=== PATIENT | male | born 1965 | race Caucasian/White ===

== ENCOUNTER → 2020-06-19 06:38 | Outpatient (CLI) | payer MEDICAID, SELFPAY ==
--- NOTE | 2020-06-20 09:04 | PFT ---
INTRODUCTION: The patient is a 55-year-old male that presents for pulmonary function studies secondary to a diagnosis of dyspnea. Respiratory therapy reports good patient effort. Bronchodilators were used during testing. INTERPRETATION: Forced expiration spirometry demonstrates no evidence of a large airways obstructive ventilatory defect. There was no significant response to aerosolized bronchodilators, based upon strict ATS criteria. Spirograms are of good quality and plateau normally. Body plethysmography was performed and reveals a decreased TLC to 4.74 L, 73% of predicted, indicative of a mild restrictive ventilatory impairment. The remainder of the lung volumes are symmetrically reduced. Diffusing capacity by single breath CO is at the lower limits of normal. IMPRESSION: Isolated mild restrictive ventilatory impairment with diffusing capacity at the lower limits of normal.
== END ==
PROVIDERS: PCP Student in an Organized Health Care Education/Training Program; Referring Provider Student in an Organized Health Care Education/Training Program; Visit Provider Student in an Organized Health Care Education/Training Program
DX: R06.00 Dyspnea, unspecified (principal); Z87.891 Personal history of nicotine dependence
CPT/HCPCS: 94060; 94726; 94729

== ENCOUNTER → 2020-08-23 09:03 | Outpatient (CLI) | payer MEDICAID, SELFPAY ==
[2020-08-23 10:45] LABS: Albumin, Serum 3.6 g/dL (3.2-5.0); BUN 53 mg/dL (7-18); BUN/Creat Ratio 11.9 RATIO (10-20); Chloride 111 mmol/L (98-107); Creatinine, Serum 4.46 mg/dL (0.70-1.30); EST Glomerular Filtration Rate 15 mL/min (>60); Est Glom Filt Rate - Afr Amer 18 mL/min (>60); Glucose 109 mg/dL (74-106); Phosphorus 3.9 mg/dL (2.5-4.9); Potassium 4.9 mmol/L (3.5-5.1); Sodium Level 139 mmol/L (136-145)
== END ==
PROVIDERS: PCP Student in an Organized Health Care Education/Training Program; Referring Provider Student in an Organized Health Care Education/Training Program; Visit Provider Student in an Organized Health Care Education/Training Program
DX: I10 Essential (primary) hypertension (principal); R94.4 Abnormal results of kidney function studies
CPT/HCPCS: 36415; 80069

== ENCOUNTER → 2020-08-26 12:26 | Outpatient (CLI) | payer MEDICAID, SELFPAY ==
[2020-08-21 11:09] LABS: Hematocrit 36.6 % (40-54); Hemoglobin 11.4 g/dL (13.0-16.5); Mean Corp Hgb Conc 31.1 g/dL (32-36); Mean Corpuscular Hgb 29.5 pg (27.0-32.0); Mean Corpuscular Volume 94.6 fL (80-94); Mean Platelet Vol. 10.5 fl (6.2-12.0); Platelet Count 274 K/mm3 (150-450); RBC Distribution Width CV 12.6 % (11.6-14.6); RBC Distribution Width SD 43.3 fl (35.1-43.9); Red Blood Count 3.87 M/mm3 (4.6-6.2); White Blood Count 7.1 K/mm3 (4.4-11.0)
[2020-08-21 11:40] LABS: Hemoglobin A1c 6.6 % (3.8-5.6)
[2020-08-21 12:07] LABS: ALB/GLOB Ratio 0.9 RATIO (0.9-2.4); AST(SGOT) 17 U/L (15-37); Alanine Aminotransfer ALT/SGPT 18 U/L (16-61); Albumin, Serum 3.9 g/dL (3.2-5.0); Alkaline Phosphatase 52 U/L (45-117); Anion Gap 8 (5-15); BUN 48 mg/dL (7-18); BUN/Creat Ratio 10.5 RATIO (10-20); Chloride 107 mmol/L (98-107); Cholesterol 207 mg/dL (200); Creatinine, Serum 4.57 mg/dL (0.70-1.30); EST Glomerular Filtration Rate 14 mL/min (>60); Est Glom Filt Rate - Afr Amer 17 mL/min (>60); Globulin 4.5 g/dL (2.2-4.2); Glucose 143 mg/dL (74-106); High Density Lipoprotein 41 mg/dL; Potassium 5.1 mmol/L (3.5-5.1); Protein, Total 8.4 g/dL (6.4-8.2); Sodium Level 137 mmol/L (136-145); Thyroid Stim Hormone (TSH) 0.66 uIU/mL (0.358-3.74); Triglycerides 171 mg/dL; Very Low Density Lipoprotein 34 mg/dL (5-40)
--- NOTE | 2020-08-26 12:51 | MRI_ITS ---
STUDY: MRI THORACIC SPINE WITHOUT CONTRAST REASON FOR EXAM: Male, 55 years old. compression fx, back pain, bilateral extremity pain and numbness TECHNIQUE: Standardized fat and water weighted pulse sequences were obtained in the sagittal and axial planes. The uterus and ovaries are unremarkable.. An IUD is. COMPARISON: None. FINDINGS: Normal kyphosis of the thoracic spine. There is levoscoliosis of the thoracic spine. T1-2, T2-3, T3-4, T4-5, T5-6, T9-10, T10-11, T11-12: Normal endplates. Normal disc hydration, heights and morphology of the corresponding intervertebral discs. Normal central canal and intervertebral neural foramina at the corresponding levels. At T6-7, T7-8,Endplate spondylosis. Decreased disc height and small circumferential disc bulge. Degenerative changes of the bilateral facet joints. Mild narrowing of the central canal and bilateral intervertebral neural foramina. At T8-9, there is a small right para midline disc herniation impinging on the spinal cord near the origin of the right T9 nerve root. There is mild decreased height of vertebral bodies of T7 and T8 suggesting old compression fractures. There is no acute bone injury. Normal visualized thoracic cord. Normal conus medullaris that terminates at the . Multiple bilateral renal cysts are noted. MRI/Spine Thoracic (Routine) IMPRESSION: At T6-7, T7-8,Endplate spondylosis. Decreased disc height and small circumferential disc bulge. Degenerative changes of the bilateral facet joints. Mild narrowing of the central canal and bilateral intervertebral neural foramina. At T8-9, there is a small right para midline disc herniation impinging on the spinal cord near the origin of the right T9 nerve root. There is mild decreased height of vertebral bodies of T7 and T8 suggesting old compression fractures. There is no acute bone injury. Electronically Signed: Chau Patel, at 4:08 EDT Tel , Service support ,
--- NOTE | 2020-08-26 12:51 | MRI_ITS ---
STUDY: MRI LUMBAR SPINE WITHOUT CONTRAST REASON FOR EXAM: Male, 55 years old. compression fx, back pain, bilateral extremity pain and numbness TECHNIQUE: Standardized fat and water weighted pulse sequences were obtained in the sagittal and axial planes. COMPARISON: None FINDINGS: There is dextroscoliosis of lumbar spine angle measures 29 degrees. T12-L1: Normal endplates. Normal disc height, hydration and morphology. Normal bilateral facet joints. Normal central canal and bilateral lateral recesses. Normal bilateral intervertebral neural foramina. Normal lumbar lordosis. There is no substantial scoliosis. Normal conus medullaris that terminates at the L1 level. L1-2: Endplate spondylosis. Decreased disc height and small circumferential disc bulge. Degenerative changes of the bilateral facet joints. Mild narrowing of the central canal and cblg-hq-nujoondl narrowing of the bilateral intervertebral neural foramina more prominent on the left side. L2-3: Endplate spondylosis. Decreased disc height and small circumferential disc bulge. Degenerative changes of the bilateral facet joints. Mild narrowing of the central canal and gljw-wr-fzfpjnve narrowing of the bilateral intervertebral neural foramina more prominent on the left side. L3-4: Endplate spondylosis. Decreased disc height and small circumferential disc bulge. Degenerative changes of the bilateral facet joints. Mild narrowing of the central canal and zeed-sn-euyhfvzy narrowing of the bilateral intervertebral neural foramina. L4-5: Endplate spondylosis. Decreased disc height and small circumferential disc bulge. Degenerative changes of the bilateral facet joints. Mild narrowing of the central canal and nahs-zw-drkxsbcu narrowing of the bilateral intervertebral neural foramina more prominent on the right side. L5-S1: Endplate spondylosis. Decreased disc height and small circumferential disc bulge. Degenerative changes of the bilateral facet joints. Mild narrowing of the central canal and oehe-fa-sxugsuqm narrowing of the bilateral intervertebral neural foramina more prominent on the right side. Normal visualized sacral ala. There is severe bilateral hydronephrosis and hydroureter with pseudodiverticulosis in the urinary bladder wall suggesting neurogenic bladder. MRI/Spine Lumbar (Routine) IMPRESSION: Multilevel degenerative changes, as described above. Electronically Signed: Chau Patel, at 6:18 EDT Tel , Service support ,
== END ==
PROVIDERS: PCP Student in an Organized Health Care Education/Training Program; Referring Provider Student in an Organized Health Care Education/Training Program; Visit Provider Student in an Organized Health Care Education/Training Program
DX: M48.50XA Collapsed vertebra, not elsewhere classified, site unspecified, initial encounter for fracture (principal)
CPT/HCPCS: 36415; 72146; 72148; 80053; 80061; 83036; 84443; 85027

== ENCOUNTER 2020-08-27 18:49 | Inpatient (IN) | payer MEDICAID, SELFPAY ==
[2020-08-27 18:50] VITALS: BP 160/95; PULSE 115; RESP 16; TEMP 36.2; O2SAT 98; BMI 32.3
--- NOTE | 2020-08-27 19:03 | EKG12_ITS ---
Test Reason : ABN LABS Blood Pressure : / mmHG Vent. Rate : 108 BPM Atrial Rate : 108 BPM P-R Int : 154 ms QRS Dur : 100 ms QT Int : 334 ms P-R-T Axes : 056 103 071 degrees QTc Int : 447 ms Sinus tachycardia Rightward axis Borderline ECG Confirmed by SRAVANTHI MILLER, ELIZABETH ([id number]), news editor NACHO BGEUM ([id number]) on 09/02/2020 11:55:18 AM Referred By: NAHOMI Confirmed By:ELIZBAETH FISHMAN MD
[2020-08-27 19:16] LABS: Absolute Neutrophil Count 4.4 X10^3/uL (2.0-7.7); Basophil# 0.04 X10^3/uL; Basophil% 0.6 % (0-1); Eosinophil# 0.31 X10^3/uL; Eosinophils% 4.4 % (0-5); Hematocrit 36.2 % (40-54); Hemoglobin 11.9 g/dL (13.0-16.5); Lymphocyte % 23.9 % (19-41); Mean Corp Hgb Conc 32.9 g/dL (32-36); Mean Corpuscular Hgb 30.4 pg (27.0-32.0); Mean Corpuscular Volume 92.3 fL (80-94); Mean Platelet Vol. 10.2 fl (6.2-12.0); Monocyte# 0.64 X10^3/uL; NRBC Flagged by Analyzer 0 % (0-5); Neutrophil # 4.39 X10^3/uL (2.7-7.7); Neutrophil % 61.7 % (47-70); Platelet Count 310 K/mm3 (150-450); RBC Distribution Width CV 12.3 % (11.6-14.6); RBC Distribution Width SD 41.3 fl (35.1-43.9); Red Blood Count 3.92 M/mm3 (4.6-6.2); White Blood Count 7.1 K/mm3 (4.4-11.0)
[2020-08-27] MEDS: HYDROcodone Bitartrate/Apap 5/325 Tablet PO (19:18)
--- NOTE | 2020-08-27 19:20 | ED.DCSUM_ITS ---
- ER Visit Summary Date of Service: 08/27/20 Chief Complaint: Hyperkalemia History of Present Illness: The patient is a 55 M who presents with hyperkalemia that was noticed today. Patient had outpatient labs drawn at [facility]. Patient states his doctor called him and told him that his potassium was elevated. Patient also saw his primary care physician 4 days ago and had labs drawn at that time. His potassium was normal at that time. However, his kidney function tests have been elevated over the past 4 days. Patient's primary care physician started him on lisinopril which did not improve his renal function. Patient admits to some shortness of breath. Patient states this is worse with walking. Patient denies any fevers or chills. Patient's primary care physician called him prior to the patient coming to the emergency department. He reported that the patient's baseline creatinine is 1.4. Physical Examination: Vital signs are stable. Patient is afebrile. Patient is in no acute distress. Oral mucosa is pink and moist. Neck is supple. Trachea is midline. There is no JVD noted. Heart was regular rate and rhythm. Lungs are clear and equal bilaterally. Abdomen is soft. Bowel sounds are normal. There is no tenderness. There is no rebound or guarding noted. Skin is warm dry. Cranial nerves II through XII are intact. There are no focal motor or sensory deficits noted. Extremities are intact. There is no calf tenderness or edema. Test Results: EKG showed sinus tachycardia with a rate of 108. There are no acute ST or T wave changes noted. CBC shows a mild anemia with a hemoglobin of 11.9 and hematocrit of 36.2. Comprehensive metabolic profile shows an elevated potassium of 5.4. BUN and creatinine were also elevated at 57 and 4.65. Liver function tests were essentially within normal limits. Urinalysis does not show any evidence of urinary tract infection. Troponin was normal. Emergency Department Course and Treatment: Patient was given IV fluids here. Patient was given a dose of Kayexalate here. Case was discussed with the hospitalist. He will admit the patient to PCU. Patient understands and is agreeable with the plan. All questions were answered. Disposition: Admit to hospital Impression: 1. Acute kidney injury 2. Hyperkalemia This note was generated with [employer] software. It may contain incorrect words, spelling, and punctuation that were not noted in review of the chart prior to signing ED Disposition - Plan for ED Patient: Disposition: Acute Care Hospital [facility] Diagnosis: Acute kidney injury, Hyperkalemia
[2020-08-27 19:41] LABS: Bacteria 0 SEEN /hpf (None Seen); Mucous, Urine 0 SEEN /hpf (<or=2+); Red Blood Cells-Urine 0 SEEN /hpf (0-5); Squamous Epithelial Cells - UA 0 SEEN /hpf (0-5); White Blood Cells 0 SEEN /hpf (0-5)
[2020-08-27 19:42] LABS: Color, Urine Yellow (Yellow); Glucose, Dipstick Normal (Normal); Ketone-Dipstick Negative (Negative); Leukocyte Esterase-Dipstick Negative /ul (Negative); Nitrite-Dipstick Negative (Negative); Occult Blood-Urine Negative /ul (Negative); Protein-Dipstick 30 mg/dl (Negative); Urine Bilirubin Dipstick Negative (Negative); Urine Clarity Clear (Clear); Urine Urobilinogen Normal (Normal)
[2020-08-27 19:43] LABS: ALB/GLOB Ratio 0.9 RATIO (0.9-2.4); AST(SGOT) 12 U/L (15-37); Alanine Aminotransfer ALT/SGPT 18 U/L (16-61); Alkaline Phosphatase 61 U/L (45-117); Anion Gap 7 (5-15); BUN 57 mg/dL (7-18); BUN/Creat Ratio 12.3 RATIO (10-20); Calcium,Total 9.4 mg/dL (8.5-10.1); Chloride 108 mmol/L (98-107); Creatinine, Serum 4.65 mg/dL (0.70-1.30); EST Glomerular Filtration Rate 14 mL/min (>60); Est Glom Filt Rate - Afr Amer 17 mL/min (>60); Estimated Creatinine Clearance 17.16 ml/min; Globulin 4.7 g/dL (2.2-4.2); Glucose 138 mg/dL (74-106); Potassium 5.4 mmol/L (3.5-5.1); Protein, Total 8.7 g/dL (6.4-8.2); Sodium Level 137 mmol/L (136-145)
--- NOTE | 2020-08-27 20:48 | PCM.HP.STD ---
Problem List (1) Hyperkalemia Status: Acute (2) Acute renal failure Status: Acute (3) Benign prostatic hyperplasia Status: Chronic (4) Type 2 diabetes mellitus Status: Chronic History of Present Illness Date of Admission: 08/27/20 Chief Complaint: Abnormal labs. The patient is a 55 year old M with past medical history as mentioned above who was instructed by his PCP to go to the emergency department because his potassium was elevated. States that he has been having kidney problems over the last couple of weeks and his doctor has been doing blood work to monitor his kidney function. He had a blood work done as outpatient and his doctor called him today and he was informed to come to the emergency department for evaluation. He complains of generalized fatigue that has been going on for several weeks, he thinks that his body is not metabolizing his medication appropriately and he complains of nausea without vomiting as well. He mentioned that he has been having frequency of urination over the last several days without dysuria or hematuria. He denied chest pain or shortness of breath. He denied abdominal pain, flank pain, nausea or vomiting. He denied urinary retention. He reported mild dry chronic cough secondary to asthma. Denied fever or chills. He had a history of type 2 diabetes mellitus which has been under control with diet and exercise according to the patient. History of benign prostatic hypertrophy and he has been on Flomax. He mentioned that 4 years ago, he had pneumonia which was complicated by sepsis, was on mechanical ventilation and complicated by renal failure that required hemodialysis and remained on hemodialysis for 2 weeks. He came off hemodialysis at that time and he has no issues since then. Patient reports that his baseline creatinine has been around 1.4 according to him, no documents. In the emergency department, he was afebrile, slightly tachycardic, blood pressure was slight elevated, pulse ox was 98% on room air. Routine blood work was remarkable for hemoglobin of 11.9 g/dL, potassium 5.4, BUN 57, creatinine is 4.65, GFR is 14. LFT was unremarkable. EKG revealed sinus tachycardia, no acute segment changes. Troponin was negative. Urinalysis showed no evidence of infection. He is being admitted for acute renal failure and hyperkalemia for evaluation and treatment. Past Medical History Past Medical History (Chronic Problems): Chronic Problems Benign prostatic hyperplasia (Chronic) Type 2 diabetes mellitus (Chronic) Allergies aspirin Allergy (Verified 08/27/20 18:52) NEEDS FOLLOW-UP Home Medications: Ambulatory Orders Medication Instructions Recorded Acetaminophen/Diphenhydramine 1 - 2 tab PO QHS 08/27/20 [Tylenol Pm Ex-Strength Caplet] Lisinopril [Zestril] 10 mg PO DAILY 08/27/20 Tamsulosin HCl 0.4 mg PO DAILY 08/27/20 Surgical History: herniorrhaphy Psychiatric History: No pertinent psych hx Lives: Alone Smoking Status: Current every day smoker Tobacco Use: Pipe Alcohol: Occasional Drugs: None - *Family History Maternal History Items: No pertinent history Paternal History Items: No pertinent history Review of Systems Constitutional: Reports: Fatigue. Denies: Anorexia, Chills, Fever, Weakness Eyes: Denies: Blurred vision, Double vision, Drainage, Redness HEENT: Denies: Difficulty Hearing, Dysphasia, Ear Pain, Eye Pain, Nasal Congestion, Sore Throat Cardiovascular: Denies: Chest Pain, Chest Pressure, Heaviness, Light Headedness, Palpitations, Syncope Respiratory: Reports: Cough. Denies: Pleuritic Pain, Shortness of Breath, Sputum production, Wheezing Gastrointestinal: Reports: Nausea. Denies: Abdominal Pain, Constipation, Diarrhea, Hematochezia, Melena, Vomiting Genitourinary: Reports: Frequency. Denies: Dysuria, Hematuria Musculoskeletal: Reports: Back Pain. Denies: Arm Pain, Foot Pain Skin: Denies: Dryness, Rash Neurological: Denies: Balance problems, Double vision, Change in Speech, Slurred speech, Confusion, Focal weakness, Headaches Psychiatric: Denies: Anxiety, Depression Endocrine: Denies: Change in Body Habitus, Polydipsia, Polyuria VTE Information - Inpt Only VTE Present on Admission: No VTE Mechan Device Prophylaxis: None VTE Pharm Prophylaxis ordered?: Yes Patient Problems: Active and Suspected Problems Hyperkalemia (Acute) Acute renal failure (Acute) - Physical Exam Vitals/I&O's: Vital Signs Temp Pulse Resp BP Pulse Ox 97.1 F L 115 H 16 160/95 H 98 08/27/20 18:50 08/27/20 18:50 08/27/20 18:50 08/27/20 18:50 08/27/20 18:50 Oxygen Delivery Method Room Air Weight: 213 lb Body Mass Index (BMI) 32.3 Intake and Output for Last 24 Hours 08/25/20 08/26/20 08/27/20 23:59 23:59 23:59 Intake Total 500 / 500 Balance 500 / 500 General: Alert, Oriented x3, Cooperative, No apparent distress HEENT: Atraumatic, PERRLA, EOMI, Normocephalic Oral: Moist Mucosa, No Gingival or Mucosal Lesions/ Ulcerations Neck: Supple, No JVD, Negative Carotid Bruits, Trachea Midline, Thyroid Normal Size and Texture Lungs: Clear to auscultation, Normal air movement, No rhonchi, No wheeze, No rales, Diminished Cardiovascular: Regular rate, Regular Rhythm, Normal S1, Normal S2, PMI Normal, Tachycardic Abdomen: Bowel Sounds Present, Soft, Non Tender, Non-Distended, No Hepato-splenomegaly Extremities: No clubbing, No cyanosis, No edema Skin: No rashes, No breakdown Lymphatic: No Cervical, Supraclavicular, or Inguinal Adenopathy Neurological: Cranial nerves II-XII grossly intact, Motor Exam 5/5 strength throughout Psych/Mental Status: Normal Affect, Appropriate, Alert and oriented to time, place, person, mood and affect Laboratory Results 08/27/20 19:08: WBC 7.1, RBC 3.92 L, Hgb 11.9 L, Hct 36.2 L, MCV 92.3, MCH 30.4, MCHC 32.9, RDW Std Deviation 41.3, RDW Coeff of Janina 12.3, Plt Count 310, MPV 10.2, Immature Gran % (Auto) 0.400, Neut % (Auto) 61.7, Lymph % (Auto) 23.9, Perkins % (Auto) 9.0, Eos % (Auto) 4.4, Baso % (Auto) 0.6, Absolute Neuts (auto) 4.4, Absolute Lymphs (auto) 1.70, Nucleated RBC % 0 08/27/20 19:08: Sodium 137, Potassium 5.4 H, Chloride 108 H, Carbon Dioxide 22.0, Anion Gap 7, BUN 57 H, Creatinine 4.65 H, Estim Creat Clear Calc 17.16, Est GFR (MDRD) Af Amer 17 L, Est GFR (MDRD) Non-Af 14 L, BUN/Creatinine Ratio 12.3, Glucose 138 H, Calcium 9.4, Total Bilirubin 0.30, AST 12 L, ALT 18, Alkaline Phosphatase 61, Troponin I < 0.015, Total Protein 8.7 H, Albumin 4.0, Globulin 4.7 H, Albumin/Globulin Ratio 0.9 08/27/20 19:29: Urine Color Yellow, Urine Clarity Clear, Urine pH 6.0, Ur Specific [place] 1.010, Urine Protein 30 H, Urine Glucose (UA) Normal, Urine Ketones Negative, Urine Occult Blood Negative, Urine Nitrite Negative, Urine Bilirubin Negative, Urine Urobilinogen Normal, Ur Leukocyte Esterase Negative, Urine RBC 0 SEEN, Urine WBC 0 SEEN, Ur Squamous Epith Cells 0 SEEN, Urine Bacteria 0 SEEN, Urine Mucus 0 SEEN Assessment/Plan All Active Problems Hyperkalemia (Acute) Acute renal failure (Acute) This is a 55 years old male patient was referred to the emergency department by his PCP for abnormal blood work including elevated potassium and is being admitted for acute renal failure and hyperkalemia. #1 acute renal failure: Patient had a history of pneumonia complicated by renal failure and sepsis 4 years ago, was on dialysis for 2 weeks and then came off dialysis. Reportedly, baseline creatinine has been around 1.4 mg/dL according to the patient, no documents available. EKG revealed sinus tachycardia, otherwise normal. Plan: Admit to PCU, cardiac monitoring, IV fluids, input output chart, avoid nephrotoxic drugs, check urine sodium, urine chloride, urine creatinine, urine calcium, ultrasound kidneys and bladder, nephrology consult, repeat CBC and BMP tomorrow morning. #2 hyperkalemia: Secondary to #1 in addition to lisinopril. EKG reviewed, no acute changes, does show sinus tachycardia. Patient received 1 dose of Kayexalate in the ED. Plan: IV fluids as above, input output chart, discontinue lisinopril, repeat BMP tomorrow morning. #3 type 2 diabetes mellitus: On diet control according to the patient. Plan: Accu-Cheks, insulin sliding scale, check hemoglobin A1c. #4 benign prostatic hypertrophy: Patient denies any obstructive symptoms, continue Flomax. #5 chronic back pain: Patient had MRI lumbar and thoracic spine that was done yesterday, reviewed. Plan for OxyIR as needed for pain, follow-up with his doctor as outpatient. #6 DVT prophylaxis: Subcu heparin. This note was generated with [employer]ation software. It may contain incorrect words, spelling, and punctuation that were not noted in checking the note before signing. Inpatient E&M: 38396 Init Hosp L2
[2020-08-27] MEDS: Sodium Polystyrene Sulfonate 15 GM/60 ML UDC 30 GM PO (20:52)
[2020-08-27 20:54] VITALS: BP 160/95; PULSE 90; RESP 15; RESP 16; TEMP 36; O2SAT 98
--- NOTE | 2020-08-27 21:03 | US_ITS ---
STUDY: RENAL ULTRASOUND - COMPLETE REASON FOR EXAM: Male, 55 years old. RUTHIE ON CKD TECHNIQUE: Ultrasound evaluation of the kidneys was performed with real-time and static pompa-scale imaging. COMPARISON: None. FINDINGS: RIGHT KIDNEY: Normal location of the right kidney, which is normal in size. The right kidney measures 11.4 cm. There is a normal cortex of the right kidney. The renal cortex measures 0.7 cm. There is no right renal mass or cyst. There are no right renal calculi. There is severe hydronephrosis of the right kidney. DISTAL RIGHT URETER: There is non-visualization of the distal right ureter. There is no demonstrated right ureterovesical junction calculus. There is a visualized right ureteral jet. LEFT KIDNEY: Normal location of the left kidney, which is normal in size. The left kidney measures 12.5 cm. There is a normal cortex of the left kidney. The renal cortex measures 1.9 cm. There is no left renal mass or cyst. There are no left renal calculi. There is severe hydronephrosis of the left kidney. DISTAL LEFT URETER: There is non-visualization of the distal left ureter. There is no demonstrated left ureterovesical junction calculus. There is a visualized left ureteral jet. BLADDER: The distended urinary bladder has a volume of 634 ml. The empty urinary bladder has a volume of ml. There is a normal wall thickness of the distended urinary bladder. There is no demonstrated mass within the urinary bladder. There are no demonstrated bladder calculi. US/Kidney and Bladder IMPRESSION: Severe bilateral hydronephrosis likely from bladder outlet obstruction. Correlation with CT would be useful. Electronically Signed: Billy Rodriguez MD at 8:07 EDT Tel , Service support ,
[2020-08-27 21:11] VITALS: BMI 32.1
[2020-08-27 21:15] VITALS: BP 131/86; PULSE 94; RESP 18; TEMP 36.1; O2SAT 98
--- NOTE | 2020-08-27 21:30 | RAD_ITS ---
STUDY: X-RAY CHEST REASON FOR EXAM: Male, 55 years old. ACUTE RENAL FAILURE TECHNIQUE: Single AP portable view of the chest. COMPARISON: None. FINDINGS: The lungs are clear and expanded. There is no demonstrated pleural abnormality. Normal size heart. Normal mediastinum and yifan. Normal visualized pulmonary arteries. Normal visualized aortic arch and descending thoracic aorta. Normal visualized thoracic spine. Normal visualized ribs, clavicles, and shoulders. There is no demonstrated abnormality of the visualized soft tissue structures of the upper abdomen. RAD/Chest 1 View (Portable) IMPRESSION: Normal x-ray examination of the chest. Electronically Signed: Billy Rodriguez MD at 8:27 EDT Tel , Service support ,
[2020-08-27 21:33] VITALS: PULSE 79; PULSE 99
[2020-08-27 21:35] VITALS: BMI 32.1
[2020-08-27] MEDS: oxyCODONE 5 MG Tablet PO (21:43)
[2020-08-27] MEDS: 0.9% Saline Lock 10 ML Syringe IV (21:43)
[2020-08-27] MEDS: 0.9% Normal Saline 1,000 ML 125 ML IV (21:43)
[2020-08-27] MEDS: Acetaminophen 325 MG Tablet 650 MG PO (21:43)
[2020-08-27] MEDS: Heparin Injection (Vial) 5,000 UNIT/ML VIAL 5000 UNIT SC (21:51)
[2020-08-27 22:06] LABS: Urine Chloride 39 mmol/L (Not Establ.); Urine Sodium 41 mmol/L (Not Establ.)
[2020-08-27 22:35] LABS: Calcium, Urine (Random) < 2.0 mg/dL (Not Estab.)
[2020-08-27 22:51] LABS: Hemoglobin A1c 6.5 % (3.8-5.6)
[2020-08-27 23:01] LABS: Bedside Glucose 161 mg/dL (70-110)
[2020-08-28] VITALS (12 sets, daily range): BP systolic 120–135; BP diastolic 62–74; PULSE 68–100; RESP 16–18; TEMP 36.8–37.1; O2SAT 98–100
[2020-08-28] MEDS: Acetaminophen 325 MG Tablet 650 MG PO ×4 (03:43→23:20)
[2020-08-28] MEDS: oxyCODONE 5 MG Tablet PO ×4 (03:43→23:20)
[2020-08-28] MEDS: 0.9% Normal Saline 1,000 ML 125 ML IV (05:40)
[2020-08-28] MEDS: Heparin Injection (Vial) 5,000 UNIT/ML VIAL 5000 UNIT SC ×2 (05:41→20:33)
[2020-08-28 06:27] LABS: Absolute Lymphocyte Count 1.94 X10^3/uL (0.83-4.51); Absolute Neutrophil Count 2.8 X10^3/uL (2.0-7.7); Basophil# 0.02 X10^3/uL; Basophil% 0.3 % (0-1); Eosinophil# 0.37 X10^3/uL; Eosinophils% 6.4 % (0-5); Hematocrit 33.2 % (40-54); Hemoglobin 10.6 g/dL (13.0-16.5); Lymphocyte # 1.94 X10^3/ul (4.0); Lymphocyte % 33.6 % (19-41); Mean Corp Hgb Conc 31.9 g/dL (32-36); Mean Corpuscular Hgb 30.1 pg (27.0-32.0); Mean Corpuscular Volume 94.3 fL (80-94); Mean Platelet Vol. 10.2 fl (6.2-12.0); Monocyte# 0.61 X10^3/uL; Monocyte% 10.6 % (0-10); NRBC Flagged by Analyzer 0 % (0-5); Neutrophil # 2.81 X10^3/uL (2.7-7.7); Neutrophil % 48.6 % (47-70); Platelet Count 255 K/mm3 (150-450); RBC Distribution Width CV 12.4 % (11.6-14.6); RBC Distribution Width SD 43.1 fl (35.1-43.9); Red Blood Count 3.52 M/mm3 (4.6-6.2); White Blood Count 5.8 K/mm3 (4.4-11.0)
[2020-08-28 06:56] LABS: Bedside Glucose 137 mg/dL (70-110)
[2020-08-28 06:56] LABS: Anion Gap 8 (5-15); BUN 56 mg/dL (7-18); BUN/Creat Ratio 13.3 RATIO (10-20); Calcium,Total 8.3 mg/dL (8.5-10.1); Chloride 108 mmol/L (98-107); Creatinine, Serum 4.21 mg/dL (0.70-1.30); EST Glomerular Filtration Rate 16 mL/min (>60); Est Glom Filt Rate - Afr Amer 19 mL/min (>60); Estimated Creatinine Clearance 18.95 ml/min; Glucose 109 mg/dL (74-106); Potassium 5.1 mmol/L (3.5-5.1); Sodium Level 136 mmol/L (136-145)
--- NOTE | 2020-08-28 09:15 | PCM.PN.HOSP ---
Patient Problems: Active and Suspected Problems Hyperkalemia (Acute) Acute renal failure (Acute) Reason for Visit: Follow-up for acute kidney injury on CKD with bladder outlet obstruction and bilateral hydronephrosis. Objective: Seen and examined. Heart rate and blood pressure are controlled. Patient states he has been urinating every 2 hours during the day and night for 2 to 3 years. Patient has history of his schizophrenia. Patient had history of kidney failure that required hemodialysis for 2 weeks about 4 years ago when he had sepsis from pneumonia which required ventilator support. Patient reports at baseline creatinine around 1.4. Patient stated mild burning micturition but it is not concerning to him. UA negative, 0 WBC, 0 RBC, 0 bacteria. Physical exam General: Alert, Oriented x3, Cooperative HEENT: Atraumatic, PERRLA, EOMI, Normocephalic Oral: No Gingival or Mucosal Lesions/ Ulcerations Neck: Supple, No JVD, Negative Carotid Bruits Lungs: Air entry diminished in bilateral lung bases. No crepitation/rhonchi Cardiovascular: Regular rate, Regular Rhythm, Normal S1, Normal S2, No murmurs Abdomen: Bowel Sounds Present, Soft, Non Tender, Non-Distended : No renal angle tenderness. No suprapubic tenderness. On per rectal exam, prostate is enlarged, could not reach upper border. No nodule palpated. Extremities: No edema, Capillary Refill Less than 3 Seconds Skin: No rashes, No breakdown Musculoskeletal: No Tenderness to Palpation of Joints or Extremities Neurological: Cranial nerves II-XII grossly intact, Deep Tendon Reflexes 2+/4 and Symmetrical, Neuro grossly intact Psych/Mental Status: Normal Affect, Appropriate. Vitals/I&O's: Vital Signs Temp Pulse Resp BP Pulse Ox 98.3 F 76 18 135/62 H 98 08/28/20 03:15 08/28/20 03:15 08/28/20 03:15 08/28/20 03:15 08/28/20 07:30 Oxygen Delivery Method Room Air Weight: 210 lb 15.718 oz Body Mass Index (BMI) 32.1 Intake and Output for Last 24 Hours 08/26/20 08/27/20 08/28/20 23:59 23:59 23:59 Intake Total 500 / 500 993.75 / 993.75 Balance 500 / 500 993.75 / 993.75 Laboratory Results 08/27/20 19:08: WBC 7.1, RBC 3.92 L, Hgb 11.9 L, Hct 36.2 L, MCV 92.3, MCH 30.4, MCHC 32.9, RDW Std Deviation 41.3, RDW Coeff of Janina 12.3, Plt Count 310, MPV 10.2, Immature Gran % (Auto) 0.400, Neut % (Auto) 61.7, Lymph % (Auto) 23.9, [place] % (Auto) 9.0, Eos % (Auto) 4.4, Baso % (Auto) 0.6, Absolute Neuts (auto) 4.4, Absolute Lymphs (auto) 1.70, Nucleated RBC % 0 08/27/20 19:08: Sodium 137, Potassium 5.4 H, Chloride 108 H, Carbon Dioxide 22.0, Anion Gap 7, BUN 57 H, Creatinine 4.65 H, Estim Creat Clear Calc 17.16, Est GFR (MDRD) Af Amer 17 L, Est GFR (MDRD) Non-Af 14 L, BUN/Creatinine Ratio 12.3, Glucose 138 H, Calcium 9.4, Total Bilirubin 0.30, AST 12 L, ALT 18, Alkaline Phosphatase 61, Troponin I < 0.015, Total Protein 8.7 H, Albumin 4.0, Globulin 4.7 H, Albumin/Globulin Ratio 0.9 08/27/20 19:08: Hemoglobin A1c 6.5 H 08/27/20 19:29: Urine Color Yellow, Urine Clarity Clear, Urine pH 6.0, Ur Specific [place] 1.010, Urine Protein 30 H, Urine Glucose (UA) Normal, Urine Ketones Negative, Urine Occult Blood Negative, Urine Nitrite Negative, Urine Bilirubin Negative, Urine Urobilinogen Normal, Ur Leukocyte Esterase Negative, Urine RBC 0 SEEN, Urine WBC 0 SEEN, Ur Squamous Epith Cells 0 SEEN, Urine Bacteria 0 SEEN, Urine Mucus 0 SEEN 08/27/20 19:29: Ur Random Sodium 41, Ur Random Calcium < 2.0, Urine Creatinine 39.70, Urine Chloride 39 08/27/20 21:48: POC Glucose 161 H 08/28/20 06:05: WBC 5.8, RBC 3.52 L, Hgb 10.6 L, Hct 33.2 L, MCV 94.3 H, MCH 30.1, MCHC 31.9 L, RDW Std Deviation 43.1, RDW Coeff of Janina 12.4, Plt Count 255, MPV 10.2, Immature Gran % (Auto) 0.500, Neut % (Auto) 48.6, Lymph % (Auto) 33.6, [place] % (Auto) 10.6 H, Eos % (Auto) 6.4 H, Baso % (Auto) 0.3, Absolute Neuts (auto) 2.8, Absolute Lymphs (auto) 1.94, Nucleated RBC % 0 08/28/20 06:05: Sodium 136, Potassium 5.1, Chloride 108 H, Carbon Dioxide 20.0 L, Anion Gap 8, BUN 56 H, Creatinine 4.21 H, Estim Creat Clear Calc 18.95, Est GFR (MDRD) Af Amer 19 L, Est GFR (MDRD) Non-Af 16 L, BUN/Creatinine Ratio 13.3, Glucose 109 H, Calcium 8.3 L 08/28/20 06:36: POC Glucose 137 H Current Medications Acetaminophen (Acetaminophen 325 Mg Tablet) 650 mg PO Q6H PRN PRN PRN Reason: Pain Score 1-10/Temp > 100.7 F Last Admin: 08/28/20 03:43 Dose: 650 mg Documented by: Amlodipine Besylate (Amlodipine 5 Mg Tablet) 5 mg PO DAILY [facility] Heparin Sodium (Porcine) (Heparin Injection (Vial) 5,000 Unit/Ml Vial) 5,000 unit SC Q8 [facility] Last Admin: 08/28/20 05:41 Dose: 5,000 unit Documented by: Hydralazine HCl (Hydralazine 20 Mg/Ml Vial) 10 mg IV Q8H PRN PRN PRN Reason: for SBP>160 Sodium Chloride () 1,000 mls @ 125 mls/hr IV .Q8H [facility] Last Admin: 08/28/20 05:40 Dose: 125 mls/hr Documented by: Sodium Chloride () 250 mls @ 15 mls/hr IV .[id number] PRN PRN Reason: Saline Flush Sodium Chloride () 250 mls @ 15 mls/hr IV .[id number] PRN PRN Reason: Additional IVPB Infusion Influenza Virus Vaccine Quadrival (Influenza Vaccine (6mos+)/Pf 0.5 Ml Syringe) 0.5 ml IM .ONCE ONE Stop: 08/28/20 10:01 Insulin Human Lispro (Insulin Lispro 100 Unit/Ml Insuln.Pen) 0 unit SC [facility]; Protocol Last Admin: 08/28/20 06:37 Dose: Not Given Documented by: Ondansetron HCl (Ondansetron 4 Mg/2 Ml Vial) 4 mg IV Q8H PRN PRN PRN Reason: NAUSEA/VOMITING Oxycodone HCl (Oxycodone 5 Mg Tablet) 5 mg PO Q6H PRN PRN PRN Reason: Pain Score 6-10 Last Admin: 08/28/20 03:43 Dose: 5 mg Documented by: Senna/Docusate Sodium (Senna/Docusate Sodium 1 Tablet) 2 tablet PO BID PRN PRN PRN Reason: Constipation Sodium Chloride (0.9% Saline Lock 10 Ml Syringe) 10 - 40 ml IV UD PRN PRN Reason: SALINE FLUSH Last Admin: 08/27/20 21:43 Dose: 20 ml Documented by: Tamsulosin HCl (Tamsulosin Hcl 0.4 Mg Capsule) 0.4 mg PO DAILY [facility] Zolpidem Tartrate (Zolpidem Tartrate 5 Mg Tablet) 5 mg PO QHS PRN PRN PRN Reason: INSOMNIA STROKE Vital Signs/Narrative: Vital Signs Pulse Ox 08/28/20 07:30 98 Medical Necessity - Tobacco Use Smoking Status: Current every day smoker Tobacco Use: Pipe Assessment/Plan All Active Problems Hyperkalemia (Acute) Acute renal failure (Acute) This is a 55 years old male patient was referred to the emergency department by his PCP for abnormal blood work including elevated potassium and is being admitted for acute renal failure and hyperkalemia. #1 Acute kidney injury, most likely postobstructive from BPH with bladder outlet obstruction and bilateral hydronephrosis on baseline CKD stage III as per patient his baseline creatinine 1.4 but no official documentation. Patient had a history of severe sepsis with pneumonia complicated by renal failure and sepsis 4 years ago, was on dialysis for 2 weeks and then came off dialysis. EKG revealed sinus tachycardia, otherwise normal. Repeat BUN/creatinine similar 56/4.21. Urine sodium 41, urine chloride 39. At home patient is not on diuretic. Thorne catheter ordered for urine drainage. Kidney and bladder ultrasound shows severe bilateral hydronephrosis from bladder outlet obstruction. Distended urinary bladder of 634 mL. Normal wall thickness of distended bladder. No bladder mass or stone. Supervisor [employer] and neurologist consult. Avoid nephrotoxic medication or diuretic. Continue Flomax. #2 hyperkalemia: Secondary to #1 in addition to lisinopril and RUTHIE on CKD stage III. EKG reviewed, no acute changes, does show sinus tachycardia. Repeat K is 5.1 at upper limit of normal. #3 type 2 diabetes mellitus: On diet control according to the patient. Plan: Accu-Cheks, insulin sliding scale, check hemoglobin A1c. #4 benign prostatic hypertrophy: Patient denies any obstructive symptoms, continue Flomax. #5 chronic back pain: Patient had MRI lumbar and thoracic spine that was done yesterday, reviewed. Plan for OxyIR as needed for pain, follow-up with his doctor as outpatient. #6 DVT prophylaxis: Subcu heparin. Clinical Impression(s) from Imaging Studies Renal Ultrasound 08/27/20 21:03 IMPRESSION: Severe bilateral hydronephrosis likely from bladder outlet obstruction. Correlation with CT would be useful. Chest X-Ray 08/27/20 21:30 IMPRESSION: Normal x-ray examination of the chest. Electronically Signed: Billy Rodriguez MD at 8:27 EDT Tel , Service support , Inpatient E&M: [id number] [facility] Hosp L2
[2020-08-28] MEDS: Tamsulosin HCl 0.4 MG Capsule PO (10:00)
[2020-08-28] MEDS: amLODIPine 5 MG Tablet PO (10:00)
--- NOTE | 2020-08-28 11:33 | CASEMGMT ---
JODEE GRAY assessment: Face to Face with patient for initial transition planning/care coordination assessment. JODEE GRAY introduced self and role at [facility], pt voices understanding and consents to assessment at this time. Pt is lying in bed in no distress at this time Pt is A/Ox4 at this time and answers all questions appropriately at this time. Care providers, pharmacy, and demographics verified/updated at this time. Presentation: Pt states sent in by PCP for elev potassium, states has made some diet changes Admitting dx: Hyperkalemia, RUTHIE on CKD PCP: Joao Specialists: Pt states no current specialists. Preferred Pharmacy: [facility] Insurance: [employer] Prescription Benefit: [employer] Living Will/HPOA: Pt states does not have a LW/HPOA and declines AD info at this time. LNOK: Antoni Meyer, medical contact at counseling center per pt Living Arrangements: Pt states lives with his emotional support dog, Jeffrey [place], in 1 story apt and states no concerns at home at this time. Pt states is independent with ADL's. Transportation: Pt states uses bus/taxi/counseling center assist and states no transportation concerns at this time. DME/HHC: Pt states has a cane and states no need for any further DME at this time. Pt states no hx of HHC or SNF in the past. Pt states that if he goes home with the butler catheter, he would like a HHC SN set up to 'check up' on him and states no preference for HHC at this time. Pt also has a CM thru the counseling center, Neha Philippe. Mendoza corbett, voices understanding. Pt states no concerns with going home at time of discharge. Pt states is disabled. Pt states smokes a pipe 'all day' and drinks about a 6 pack of beer each month. Pt states no further concerns/needs at this time. CM to follow for any further discharge planning/needs. Advised pt to ask for CM if any further questions/concerns/needs arise, voices understanding. Pt Goal: Home Plan[place] JODEE G[place]
[2020-08-28 11:35] LABS: Bedside Glucose 107 mg/dL (70-110)
[2020-08-28] MEDS: 0.9% Normal Saline 1,000 ML 75 ML IV (13:22)
--- NOTE | 2020-08-28 14:36 | PCM.CONS.U ---
Problem List (1) Benign prostatic hyperplasia Status: Chronic Qualifiers: Lower urinary tract symptom detail: urinary retention Reason for Consult Date of Consultation: 08/28/20 Reason for Consultation: BPH with retention History of Present Illness: The patient is a 55 year old male who presents to the hospital with retention of urine had a Thorne catheter placed with significant drainage of urine creatinine still elevated he does have acute renal failure. On ultrasound he could see a large median lobe causing obstruction of the prostate. At the very distended bladder. Thorne catheter is in place and urine is draining Past Medical History Past Medical History (Chronic Problems): Chronic Problems Benign prostatic hyperplasia (Chronic) Type 2 diabetes mellitus (Chronic) Allergies aspirin Allergy (Verified 08/27/20 21:16) rapid heart rate/arrhythmia Home Medications: Ambulatory Orders Medication Instructions Recorded Acetaminophen/Diphenhydramine 1 - 2 tab PO QHS 08/27/20 [Tylenol Pm Ex-Strength Caplet] Lisinopril [Zestril] 10 mg PO DAILY 08/27/20 Tamsulosin HCl 0.4 mg PO DAILY 08/27/20 Surgical History: herniorrhaphy Psychiatric History: No pertinent psych hx Lives: Alone Smoking Status: Current every day smoker Tobacco Use: Pipe Alcohol: Occasional Drugs: None - *Family History Maternal History Items: No pertinent history Paternal History Items: No pertinent history Review of Systems Constitutional: Denies: Chills, Fever, Weight Change HEENT: Denies: Head Aches, Sinus Congestion, Sinus Drainage Cardiovascular: Denies: Chest Pain, Palpitations Respiratory: Denies: Cough, Shortness of breath at rest, Sputum production Gastrointestinal: Denies: Abdominal Pain, Nausea, Vomiting Genitourinary: Denies: Dysuria Musculoskeletal: Denies: Joint Pain, Joint Tenderness Skin: Denies: Rash, Wounds Neurological: Denies: Numbness, Tingling, Focal weakness Psychiatric: Denies: Anxiety, Depression, Homicidal Ideations, Suicidal Ideations Hematologic/ Lymphatic: Denies: Easy Bruising, Easy Bleeding Physical Exam - Physical Exam Vital Signs Temp 98.3 F 08/28/20 09:50 Pulse 77 08/28/20 09:50 Resp 18 08/28/20 09:50 BP 134/74 H 08/28/20 09:50 Pulse Ox 99 08/28/20 10:15 Intake & Output 10/08/27/20 08/28/20 23:59 23:59 23:59 Intake Total 500 / 500 2426.25 / 2426.25 Output Total 1949 Balance 500 / 500 476.25 / 476.25 Weight: 95.7 kg 95.7 kg Intake: Oral 470 / 470 Intake, IV Amount 500 / 500 / 0.9% Normal Saline 1,000 ML @ / 75 mls/hr IV .[id number] [facility] Rx#: [id number] 0.9% Normal Saline 500 ML @ 500 / 500 1000 mls/hr IV .Q30M [facility] Rx#: [id number] Output: Urine 1949 Other: Number of Voids 4 6 Number of Bowel Movements 7 General: Alert, Oriented x3 HEENT: PERRLA Oral: Moist Mucosa Neck: Supple Lungs: Normal air movement Cardiovascular: Regular rate Laboratory Tests Past 24 Hrs 08/27/20 08/27/20 08/27/20 19:08 19:08 19:08 WBC 7.1 RBC 3.92 L Hgb 11.9 L Hct 36.2 L MCV 92.3 MCH 30.4 MCHC 32.9 RDW Std Deviation 41.3 RDW Coeff of Janina 12.3 Plt Count 310 MPV 10.2 Immature Gran % (Auto) 0.400 Neut % (Auto) 61.7 Lymph % (Auto) 23.9 [place] % (Auto) 9.0 Eos % (Auto) 4.4 Baso % (Auto) 0.6 Absolute Neuts (auto) 4.4 Absolute Lymphs (auto) 1.70 Nucleated RBC % 0 Sodium 137 Potassium 5.4 H Chloride 108 H Carbon Dioxide 22.0 Anion Gap 7 BUN 57 H Creatinine 4.65 H Estim Creat Clear Calc 17.16 Est GFR (MDRD) Af Amer 17 L Est GFR (MDRD) Non-Af 14 L BUN/Creatinine Ratio 12.3 Glucose 138 H Hemoglobin A1c 6.5 H Calcium 9.4 Total Bilirubin 0.30 AST 12 L ALT 18 Alkaline Phosphatase 61 Troponin I < 0.015 Total Protein 8.7 H Albumin 4.0 Globulin 4.7 H Albumin/Globulin Ratio 0.9 Urine Color Urine Clarity Urine pH Ur Specific [place] Urine Protein Urine Glucose (UA) Urine Ketones Urine Occult Blood Urine Nitrite Urine Bilirubin Urine Urobilinogen Ur Leukocyte Esterase Urine RBC Urine WBC Ur Squamous Epith Cells Urine Bacteria Urine Mucus Ur Random Sodium Ur Random Calcium Urine Creatinine Urine Chloride 08/27/20 08/27/20 08/28/20 19:29 19:29 06:05 WBC 5.8 RBC 3.52 L Hgb 10.6 L Hct 33.2 L MCV 94.3 H MCH 30.1 MCHC 31.9 L RDW Std Deviation 43.1 RDW Coeff of Janina 12.4 Plt Count 255 MPV 10.2 Immature Gran % (Auto) 0.500 Neut % (Auto) 48.6 Lymph % (Auto) 33.6 [place] % (Auto) 10.6 H Eos % (Auto) 6.4 H Baso % (Auto) 0.3 Absolute Neuts (auto) 2.8 Absolute Lymphs (auto) 1.94 Nucleated RBC % 0 Sodium Potassium Chloride Carbon Dioxide Anion Gap BUN Creatinine Estim Creat Clear Calc Est GFR (MDRD) Af Amer Est GFR (MDRD) Non-Af BUN/Creatinine Ratio Glucose Hemoglobin A1c Calcium Total Bilirubin AST ALT Alkaline Phosphatase Troponin I Total Protein Albumin Globulin Albumin/Globulin Ratio Urine Color Yellow Urine Clarity Clear Urine pH 6.0 Ur Specific [place] 1.010 Urine Protein 30 H Urine Glucose (UA) Normal Urine Ketones Negative Urine Occult Blood Negative Urine Nitrite Negative Urine Bilirubin Negative Urine Urobilinogen Normal Ur Leukocyte Esterase Negative Urine RBC 0 SEEN Urine WBC 0 SEEN Ur Squamous Epith Cells 0 SEEN Urine Bacteria 0 SEEN Urine Mucus 0 SEEN Ur Random Sodium 41 Ur Random Calcium < 2.0 Urine Creatinine 39.70 Urine Chloride 39 08/28/20 06:05 WBC RBC Hgb Hct MCV MCH MCHC RDW Std Deviation RDW Coeff of Janina Plt Count MPV Immature Gran % (Auto) Neut % (Auto) Lymph % (Auto) [place] % (Auto) Eos % (Auto) Baso % (Auto) Absolute Neuts (auto) Absolute Lymphs (auto) Nucleated RBC % Sodium 136 Potassium 5.1 Chloride 108 H Carbon Dioxide 20.0 L Anion Gap 8 BUN 56 H Creatinine 4.21 H Estim Creat Clear Calc 18.95 Est GFR (MDRD) Af Amer 19 L Est GFR (MDRD) Non-Af 16 L BUN/Creatinine Ratio 13.3 Glucose 109 H Hemoglobin A1c Calcium 8.3 L Total Bilirubin AST ALT Alkaline Phosphatase Troponin I Total Protein Albumin Globulin Albumin/Globulin Ratio Urine Color Urine Clarity Urine pH Ur Specific [place] Urine Protein Urine Glucose (UA) Urine Ketones Urine Occult Blood Urine Nitrite Urine Bilirubin Urine Urobilinogen Ur Leukocyte Esterase Urine RBC Urine WBC Ur Squamous Epith Cells Urine Bacteria Urine Mucus Ur Random Sodium Ur Random Calcium Urine Creatinine Urine Chloride Assessment/Plan All Active Problems Hyperkalemia (Acute) Acute renal failure (Acute) 55-year-old male with retention of urine bilateral hydronephrosis acute renal failure his creatinine is still can a high not sure how much more skin to get better. Certainly I could offer him a TURP for the obstruction of his prostate but he may not still void spontaneously given his very stretched out bladder and possible bladder decompensation. I have my office get him set up for TURP what they get insurance to approve the surgery.
--- NOTE | 2020-08-28 14:39 | CON.PCM_ITS ---
Consultation - Renal 08/28/20 PCP/ Referring MD: Requesting physician: [] Primary care physician: Dr. Manuel Shepherd DO Reason for Consultation:: renal failure - History of Present Illness History of Present Illness: The patient is a 55 year old M admitted for renal failure, hyperkalemia. He was instructed by his PCP to go to the emergency department. He has a history of prostate enlargement with symptoms of incontinence, wetting the bed, hesitancy, urgency, dribbling, and frequency. Creatine was mid 4's on admit with potassium 5.4. He has not been feeling well with weakness, poor appetite, abdominal bloating, nausea, vomiting. Denied tremors, fever, chills. He has a history of RUTHIE requiring temporary hemodialysis 4 years ago during hospitalization for sepsis, pneumonia in [facility]. He has not followed up with a kidney dr since because he states his kidney function was back to normal.He has a history of type 2 diabetes mellitus which has been under control with diet and exercise according to the patient. History of benign prostatic hypertrophy and he has been on Flomax. Renal US on admit showed bilateral hydronephrosis, butler catheter draining pinkish coloured urine. consulted. - Allergies Allergies: Allergies aspirin Allergy (Verified 08/27/20 21:16) rapid heart rate/arrhythmia - Current Medications Current Medications: Current Medications Acetaminophen (Acetaminophen 325 Mg Tablet) 650 mg PO Q6H PRN PRN PRN Reason: Pain Score 1-10/Temp > 100.7 F Last Admin: 08/28/20 10:01 Dose: 650 mg Documented by: Amlodipine Besylate (Amlodipine 5 Mg Tablet) 5 mg PO DAILY [facility] Last Admin: 08/28/20 10:00 Dose: 5 mg Documented by: Heparin Sodium (Porcine) (Heparin Injection (Vial) 5,000 Unit/Ml Vial) 5,000 unit SC Q12 [facility] Hydralazine HCl (Hydralazine 20 Mg/Ml Vial) 10 mg IV Q8H PRN PRN PRN Reason: for SBP>160 Sodium Chloride () 1,000 mls @ 75 mls/hr IV .[id number] [facility] Last Admin: 08/28/20 13:22 Dose: 75 mls/hr Documented by: Sodium Chloride () 250 mls @ 15 mls/hr IV .[id number] PRN PRN Reason: Saline Flush Sodium Chloride () 250 mls @ 15 mls/hr IV .[id number] PRN PRN Reason: Additional IVPB Infusion Insulin Human Lispro (Insulin Lispro 100 Unit/Ml Insuln.Pen) 0 unit SC ACHS [facility]; Protocol Last Admin: 08/28/20 12:03 Dose: Not Given Documented by: Ondansetron HCl (Ondansetron 4 Mg/2 Ml Vial) 4 mg IV Q8H PRN PRN PRN Reason: NAUSEA/VOMITING Oxycodone HCl (Oxycodone 5 Mg Tablet) 5 mg PO Q6H PRN PRN PRN Reason: Pain Score 6-10 Last Admin: 08/28/20 10:01 Dose: 5 mg Documented by: Senna/Docusate Sodium (Senna/Docusate Sodium 1 Tablet) 2 tablet PO BID PRN PRN PRN Reason: Constipation Sodium Chloride (0.9% Saline Lock 10 Ml Syringe) 10 - 40 ml IV UD PRN PRN Reason: SALINE FLUSH Last Admin: 08/27/20 21:43 Dose: 20 ml Documented by: Tamsulosin HCl (Tamsulosin Hcl 0.4 Mg Capsule) 0.4 mg PO DAILY [facility] Last Admin: 08/28/20 10:00 Dose: 0.4 mg Documented by: Zolpidem Tartrate (Zolpidem Tartrate 5 Mg Tablet) 5 mg PO QHS PRN PRN PRN Reason: INSOMNIA - Past Medical History Past Medical History (Chronic Problems): Chronic Problems Benign prostatic hyperplasia (Chronic) Type 2 diabetes mellitus (Chronic) - Past Surgical History Surgical History: herniorrhaphy - Social History Smoking Status: Current every day smoker Alcohol: Occasional Drugs: None - Family History Maternal History Items: Renal Disease Paternal History Items: - - prostates issues Review of Systems Constitutional: Reports: Anorexia, Weakness. Denies: Chills, Fever Eyes: Denies: Blurred vision HEENT: Denies: Head Aches Cardiovascular: Denies: Chest Pain, Edema, Syncope Respiratory: Denies: Cough, Shortness of Breath, Shortness of breath upon exertion Gastrointestinal: Reports: Abdominal Pain - bloating, Nausea, Vomiting. Denies: Diarrhea, Hematochezia Genitourinary: Reports: Frequency, Hesitancy, Incontinence, Nocturia, Retention, Urgency. Denies: Hematuria Musculoskeletal: Denies: Joint swelling Skin: Denies: Rash Neurological: Denies: Tremor Psychiatric: Reports: Anxiety. Denies: Depression Hematologic/ Lymphatic: Reports: Anemia Patient Problems: Active and Suspected Problems Hyperkalemia (Acute) Acute renal failure (Acute) - Physical Exam Vitals/I&O's: Vital Signs Temp Pulse Resp BP Pulse Ox 98.3 F 77 18 134/74 H 99 08/28/20 09:50 08/28/20 09:50 08/28/20 09:50 08/28/20 09:50 08/28/20 10:15 Oxygen Delivery Method Room Air Weight: 95.7 kg Body Mass Index (BMI) 32.1 Intake and Output for Last 24 Hours 08/26/20 08/27/20 08/28/20 23:59 23:59 23:59 Intake Total 500 / 500 2426.25 / 2426.25 Output Total 1950 / 1950 Balance 500 / 500 476.25 / 476.25 General: Alert, Oriented x3, Cooperative HEENT: PERRLA, EOMI Lungs: Clear to auscultation Cardiovascular: Regular rate, No rub noted Abdomen: Bowel Sounds Present, Soft, Non Tender, Non-Distended, Obese Extremities: No edema Skin: No rashes Musculoskeletal: No Muscle Wasting Neurological: Cranial nerves II-XII grossly intact Psych/Mental Status: Normal Affect, Appropriate, Alert and oriented to time, place, person, mood and affect Laboratory Results 08/27/20 19:08: WBC 7.1, RBC 3.92 L, Hgb 11.9 L, Hct 36.2 L, MCV 92.3, MCH 30.4, MCHC 32.9, RDW Std Deviation 41.3, RDW Coeff of Janina 12.3, Plt Count 310, MPV 10.2, Immature Gran % (Auto) 0.400, Neut % (Auto) 61.7, Lymph % (Auto) 23.9, [place] % (Auto) 9.0, Eos % (Auto) 4.4, Baso % (Auto) 0.6, Absolute Neuts (auto) 4.4, Absolute Lymphs (auto) 1.70, Nucleated RBC % 0 08/27/20 19:08: Sodium 137, Potassium 5.4 H, Chloride 108 H, Carbon Dioxide 22.0, Anion Gap 7, BUN 57 H, Creatinine 4.65 H, Estim Creat Clear Calc 17.16, Est GFR (MDRD) Af Amer 17 L, Est GFR (MDRD) Non-Af 14 L, BUN/Creatinine Ratio 12.3, Glucose 138 H, Calcium 9.4, Total Bilirubin 0.30, AST 12 L, ALT 18, Alkaline Phosphatase 61, Troponin I < 0.015, Total Protein 8.7 H, Albumin 4.0, Globulin 4.7 H, Albumin/Globulin Ratio 0.9 08/27/20 19:08: Hemoglobin A1c 6.5 H 08/27/20 19:29: Urine Color Yellow, Urine Clarity Clear, Urine pH 6.0, Ur Specific [place] 1.010, Urine Protein 30 H, Urine Glucose (UA) Normal, Urine Ketones Negative, Urine Occult Blood Negative, Urine Nitrite Negative, Urine Bilirubin Negative, Urine Urobilinogen Normal, Ur Leukocyte Esterase Negative, Urine RBC 0 SEEN, Urine WBC 0 SEEN, Ur Squamous Epith Cells 0 SEEN, Urine Bacteria 0 SEEN, Urine Mucus 0 SEEN 08/27/20 19:29: Ur Random Sodium 41, Ur Random Calcium < 2.0, Urine Creatinine 39.70, Urine Chloride 39 08/27/20 21:48: POC Glucose 161 H 08/28/20 06:05: WBC 5.8, RBC 3.52 L, Hgb 10.6 L, Hct 33.2 L, MCV 94.3 H, MCH 30.1, MCHC 31.9 L, RDW Std Deviation 43.1, RDW Coeff of Janina 12.4, Plt Count 255, MPV 10.2, Immature Gran % (Auto) 0.500, Neut % (Auto) 48.6, Lymph % (Auto) 33.6, [place] % (Auto) 10.6 H, Eos % (Auto) 6.4 H, Baso % (Auto) 0.3, Absolute Neuts (auto) 2.8, Absolute Lymphs (auto) 1.94, Nucleated RBC % 0 08/28/20 06:05: Sodium 136, Potassium 5.1, Chloride 108 H, Carbon Dioxide 20.0 L , Anion Gap 8, BUN 56 H, Creatinine 4.21 H, Estim Creat Clear Calc 18.95, Est GFR (MDRD) Af Amer 19 L, Est GFR (MDRD) Non-Af 16 L, BUN/Creatinine Ratio 13.3, Glucose 109 H, Calcium 8.3 L 08/28/20 06:36: POC Glucose 137 H 08/28/20 11:28: POC Glucose 107 Clinical Impression(s) from Imaging Studies Renal Ultrasound 08/27/20 21:03 IMPRESSION: Severe bilateral hydronephrosis likely from bladder outlet obstruction. Correlation with CT would be useful. Electronically Signed: Billy Rodriguez MD at 8:07 EDT Tel , Service support , Chest X-Ray 08/27/20 21:30 IMPRESSION: Normal x-ray examination of the chest. Electronically Signed: Billy Rodriguez MD at 8:27 EDT Tel , Service support , Current Medications Acetaminophen (Acetaminophen 325 Mg Tablet) 650 mg PO Q6H PRN PRN PRN Reason: Pain Score 1-10/Temp > 100.7 F Last Admin: 08/28/20 10:01 Dose: 650 mg Documented by: Amlodipine Besylate (Amlodipine 5 Mg Tablet) 5 mg PO DAILY [facility] Last Admin: 08/28/20 10:00 Dose: 5 mg Documented by: Heparin Sodium (Porcine) (Heparin Injection (Vial) 5,000 Unit/Ml Vial) 5,000 unit SC Q12 [facility] Hydralazine HCl (Hydralazine 20 Mg/Ml Vial) 10 mg IV Q8H PRN PRN PRN Reason: for SBP>160 Sodium Chloride () 1,000 mls @ 75 mls/hr IV .[id number] [facility] Last Admin: 08/28/20 13:22 Dose: 75 mls/hr Documented by: Sodium Chloride () 250 mls @ 15 mls/hr IV .[id number] PRN PRN Reason: Saline Flush Sodium Chloride () 250 mls @ 15 mls/hr IV .[id number] PRN PRN Reason: Additional IVPB Infusion Insulin Human Lispro (Insulin Lispro 100 Unit/Ml Insuln.Pen) 0 unit SC ACHS [facility]; Protocol Last Admin: 08/28/20 12:03 Dose: Not Given Documented by: Ondansetron HCl (Ondansetron 4 Mg/2 Ml Vial) 4 mg IV Q8H PRN PRN PRN Reason: NAUSEA/VOMITING Oxycodone HCl (Oxycodone 5 Mg Tablet) 5 mg PO Q6H PRN PRN PRN Reason: Pain Score 6-10 Last Admin: 08/28/20 10:01 Dose: 5 mg Documented by: Senna/Docusate Sodium (Senna/Docusate Sodium 1 Tablet) 2 tablet PO BID PRN PRN PRN Reason: Constipation Sodium Chloride (0.9% Saline Lock 10 Ml Syringe) 10 - 40 ml IV UD PRN PRN Reason: SALINE FLUSH Last Admin: 08/27/20 21:43 Dose: 20 ml Documented by: Tamsulosin HCl (Tamsulosin Hcl 0.4 Mg Capsule) 0.4 mg PO DAILY [facility] Last Admin: 08/28/20 10:00 Dose: 0.4 mg Documented by: Zolpidem Tartrate (Zolpidem Tartrate 5 Mg Tablet) 5 mg PO QHS PRN PRN PRN Reason: INSOMNIA Assessment/Plan All Active Problems Hyperkalemia (Acute) Acute renal failure (Acute) 1. Renal failure acute vs chronic. History of ATN requiring temporary hemodialysis 4 years ago with recovery. Baseline creatinine unknown. Creatinine on admit 4.5 to 4.2 today with butler to CD. Now with obstructive uropathy. Continue to monitor renal function with indwelling butler on discharge. Check 24h urine. No indication to start dialysis urgently. 2. BPH/Obstructive uropathy, urinary retention. Butler to CD. consult 3. Hyperkalemia due to renal failure, obstruction. Follow low K diet 4. HTN stable 5. DM2 diet controlled 6. Anemia check ironstudies
[2020-08-28] MEDS: Insulin Lispro 100 UNIT/ML INSULN.PEN SC ×2 (16:57→20:34)
[2020-08-28 17:11] LABS: Bedside Glucose 162 mg/dL (70-110)
[2020-08-28 20:46] LABS: Bedside Glucose 176 mg/dL (70-110)
[2020-08-29] VITALS (8 sets, daily range): BP systolic 129–166; BP diastolic 60–94; PULSE 69–105; RESP 16–17; TEMP 36.9–37.1; O2SAT 97–100
[2020-08-29] MEDS: 0.9% Normal Saline 1,000 ML 75 ML IV (02:32)
[2020-08-29] MEDS: Acetaminophen 325 MG Tablet 650 MG PO ×3 (05:24→17:32)
[2020-08-29] MEDS: oxyCODONE 5 MG Tablet PO ×3 (05:25→17:32)
[2020-08-29 06:31] LABS: Albumin, Serum 3.4 g/dL (3.2-5.0); BUN 51 mg/dL (7-18); BUN/Creat Ratio 12.4 RATIO (10-20); Calcium,Total 8.3 mg/dL (8.5-10.1); Chloride 110 mmol/L (98-107); Creatinine, Serum 4.11 mg/dL (0.70-1.30); EST Glomerular Filtration Rate 16 mL/min (>60); Est Glom Filt Rate - Afr Amer 19 mL/min (>60); Estimated Creatinine Clearance 19.42 ml/min; Ferritin 246 ng/mL (26-388); Glucose 119 mg/dL (74-106); Iron 58 ug/dL (65-175); Phosphorus 4.4 mg/dL (2.5-4.9); Potassium 4.9 mmol/L (3.5-5.1); Sodium Level 138 mmol/L (136-145)
[2020-08-29] MEDS: Insulin Lispro 100 UNIT/ML INSULN.PEN SC ×2 (06:32→11:15)
[2020-08-29 06:45] LABS: Bedside Glucose 156 mg/dL (70-110)
[2020-08-29 08:06] LABS: PTHIN 195.6 pg/mL (18.4-80.1)
[2020-08-29] MEDS: amLODIPine 5 MG Tablet PO (08:34)
[2020-08-29] MEDS: Tamsulosin HCl 0.4 MG Capsule PO (08:34)
[2020-08-29] MEDS: Heparin Injection (Vial) 5,000 UNIT/ML VIAL 5000 UNIT SC (08:34)
--- NOTE | 2020-08-29 08:39 | PCM.PN.REN ---
Patient Problems: Active and Suspected Problems Hyperkalemia (Acute) Acute renal failure (Acute) Subjective: no nausea, vomiting. Urine volume good. Creatinine remains elevated at 4.1. 24h urine in progress. Pt asking to go home today - Physical Exam Vitals/I&O's: Vital Signs Temp Pulse Resp BP Pulse Ox 98.6 F 79 16 142/60 H 99 08/29/20 08:30 08/29/20 08:30 08/29/20 08:30 08/29/20 08:30 08/29/20 08:30 Oxygen Delivery Method Room Air Weight: 95.7 kg Body Mass Index (BMI) 32.1 Intake and Output for Last 24 Hours 08/27/20 08/28/20 08/29/20 23:59 23:59 23:59 Intake Total 500 / 500 3456.25 / 3456.25 1627.5 / 1627.5 Output Total 5800 / 5800 1300 / 1300 Balance 500 / 500 -2343.75 / -2343.75 327.5 / 327.5 General: Alert, Oriented x3, Cooperative, No apparent distress Lungs: Clear to auscultation Cardiovascular: Regular rate, No rub noted Extremities: No edema Psych/Mental Status: Alert and oriented to time, place, person, mood and affect Laboratory Results 08/28/20 11:28: POC Glucose 107 08/28/20 16:49: POC Glucose 162 H 08/28/20 20:29: POC Glucose 176 H 08/29/20 05:20: Sodium 138, Potassium 4.9, Chloride 110 H, Carbon Dioxide 21.0, BUN 51 H, Creatinine 4.11 H, Estim Creat Clear Calc 19.42, Est GFR (MDRD) Af Amer 19 L, Est GFR (MDRD) Non-Af 16 L, BUN/Creatinine Ratio 12.4, Glucose 119 H, Calcium 8.3 L, Phosphorus 4.4, Iron 58 L, Ferritin 246, Albumin 3.4 08/29/20 05:20: PTH Intact 195.6 H 08/29/20 06:31: POC Glucose 156 H Current Medications Acetaminophen (Acetaminophen 325 Mg Tablet) 650 mg PO Q6H PRN PRN PRN Reason: Pain Score 1-10/Temp > 100.7 F Last Admin: 08/29/20 05:24 Dose: 650 mg Documented by: Amlodipine Besylate (Amlodipine 5 Mg Tablet) 5 mg PO DAILY [facility] Last Admin: 08/29/20 08:34 Dose: 5 mg Documented by: Ferrous Sulfate (Ferrous Sulfate 325 Mg Tablet) 325 mg PO 1200,1700 [facility] Heparin Sodium (Porcine) (Heparin Injection (Vial) 5,000 Unit/Ml Vial) 5,000 unit SC Q12 [facility] Last Admin: 08/29/20 08:34 Dose: 5,000 unit Documented by: Hydralazine HCl (Hydralazine 20 Mg/Ml Vial) 10 mg IV Q8H PRN PRN PRN Reason: for SBP>160 Sodium Chloride () 1,000 mls @ 75 mls/hr IV .[id number] [facility] Last Admin: 08/29/20 02:32 Dose: 75 mls/hr Documented by: Sodium Chloride () 250 mls @ 15 mls/hr IV .[id number] PRN PRN Reason: Saline Flush Sodium Chloride () 250 mls @ 15 mls/hr IV .[id number] PRN PRN Reason: Additional IVPB Infusion Insulin Human Lispro (Insulin Lispro 100 Unit/Ml Insuln.Pen) 0 unit SC ACHS [facility]; Protocol Last Admin: 08/29/20 06:32 Dose: 1 unit Documented by: Ondansetron HCl (Ondansetron 4 Mg/2 Ml Vial) 4 mg IV Q8H PRN PRN PRN Reason: NAUSEA/VOMITING Oxycodone HCl (Oxycodone 5 Mg Tablet) 5 mg PO Q6H PRN PRN PRN Reason: Pain Score 6-10 Last Admin: 08/29/20 05:25 Dose: 5 mg Documented by: Senna/Docusate Sodium (Senna/Docusate Sodium 1 Tablet) 2 tablet PO BID PRN PRN PRN Reason: Constipation Sodium Chloride (0.9% Saline Lock 10 Ml Syringe) 10 - 40 ml IV UD PRN PRN Reason: SALINE FLUSH Last Admin: 08/27/20 21:43 Dose: 20 ml Documented by: Tamsulosin HCl (Tamsulosin Hcl 0.4 Mg Capsule) 0.4 mg PO DAILY [facility] Last Admin: 08/29/20 08:34 Dose: 0.4 mg Documented by: Zolpidem Tartrate (Zolpidem Tartrate 5 Mg Tablet) 5 mg PO QHS PRN PRN PRN Reason: INSOMNIA Medical Necessity - Tobacco Use Smoking Status: Current every day smoker Tobacco Use: Pipe Assessment/Plan All Active Problems Obstructive uropathy (Acute) Hyperkalemia (Acute) Acute renal failure (Acute) 1. Acute Renal failure vs chronic kidney disease stage 4. History of ATN requiring temporary hemodialysis 4 years ago with recovery. Baseline creatinine unknown. Creatinine on admit 4.5 to 4.2 today with butler to CD. ATN from obstructive uropathy. Continue to monitor renal function with indwelling butler on discharge. 24h urine in progress. No indication to start dialysis urgently. Obtain vein mapping. Will refer for dialysis education as outpt. Expressed importance of f/u in office 2. BPH/Obstructive uropathy, urinary retention. Mati to CD. consult 3. Hyperkalemia due to renal failure, obstruction resolved. Follow low K diet 4. HTN stable 5. DM2 diet controlled 6. Iron def Anemia continue oral iron on discharge
--- NOTE | 2020-08-29 08:59 | VDUE_ITS ---
Reason For Study: AVF, RUTHEI ON CKD Right Arm Left Arm Right Cephalic Vein at the wrist measures Ceph at wrist not visualized due to IV. Ceph 0.38 x 0.38 cm. at AC IV noted. Right Cephalic Vein in the forearm measures Left Cephalic Vein in the forearm measures 0.36 x 0.38 cm. 0.33 x 0.31 cm. Right Cephalic Vein below antecub measures Left Cephalic Vein below antecub measures 0.29 x 0.31 cm. 0.32 x 0.36 cm. Branch cephalic below AC, 0.17 x 0.16. Left Cephalic Vein above antecub measures Right Cephalic Vein above antecub measures 0.50 x 0.57 cm. 0.55 x 0.66 cm. Left Cephalic Vein at mid bicep measures 0.34 Right Cephalic Vein mid bicep measures 0.58 x 0.31 cm. x 0.54 cm. Left Cephalic Vein at the shoulder measures Right Cephalic Vein at the shoulder measures 0.31 x 0.30 cm. 0.54 x 0.51 cm. Basilic vein at origin measures 0.74 x 0.83 Right Basilic Vein at the origin measures cm. 0.30 x 0.37 cm. Basilic vein at bicep measures 0.68 x 0.66 Right Basilic Vein mid bicep measures 0.26 x cm. 0.25 cm. Basilic vein above antecub measures 0.76 x Right Basilic Vein above antecub measures 0.64 cm. 0.25 x 0.25 cm. Left Brachial artery measures 0.49 x 0.42 cm, Right Brachial Artery measures 0.47 x 0.45 with a velocity of 115.6 cm/s cm with a velocity of 148.4 cm/s. Left Radial artery measures 0.31 x 0.32 cm/, Right Radial Artery measures 0.33 x 0.33 cm with a velocity of 100.1 cm/s. with a velocity of 109.4 cm/s. Interpretation Summary Patent and compressible bilateral upper extremity cephalic and basilic veins. Special comment noted that the wrist on the left could not be visualized secondary to the placement of an IV and that the cephalic vein at the antecubital space on the left had an IV in place. This would be detrimental to future fistula placement Normal diameter and flow bilateral brachial and radial arteries Ordering Physician: Ale Lehman Performed By: Alisia Lama RVT and Student ?
--- NOTE | 2020-08-29 09:03 | DS.PCM_ITS ---
Discharge Date and Diagnosis - Problem List Patient Problems: Active and Suspected Problems Hyperkalemia (Acute) Acute renal failure (Acute) Date of Admission: 08/27/20 Date of Discharge: 08/29/20 - Primary Discharge Diagnosis Acute Problems: Active Problems RUTHIE on baseline CKD stage III secondary to BPH causing bilateral hydronephrosis and bladder outlet obstruction - Secondary Discharge Diagnosis Chronic Problems: Chronic Problems CKD (chronic kidney disease) stage 4, GFR 15-29 ml/min (Chronic) Benign prostatic hyperplasia (Chronic) Type 2 diabetes mellitus (Chronic) Hospital Course and Treatment Summary of Care Provided: [] This is a 55 years old male patient was referred to the emergency department by his PCP for abnormal blood work including elevated potassium and is being admitted for acute renal failure and hyperkalemia. #1 Acute kidney injury, most likely postobstructive from BPH with bladder o utlet obstruction and bilateral hydronephrosis on baseline CKD stage III as per patient his baseline creatinine 1.4 but no official documentation. Patient had a history of severe sepsis with pneumonia complicated by renal failure and sepsis 4 years ago, was on dialysis for 2 weeks and then came off dialysis. EKG revealed sinus tachycardia, otherwise normal. Repeat BUN/creatinine 51/4.11 no major difference. Urine sodium 41, urine chloride 39. At home patient is not on diuretic. Patient had 9 L urine output after Thorne catheter was probably patient is in diuretic phase of RUTHIE. Kidney and bladder ultrasound shows severe bilateral hydronephrosis from bladder outlet obstruction. Distended urinary bladder of 634 mL. Normal wall thickness of distended bladder. No bladder mass or stone. Seen by editor department and urologist. Discussed with the editor department and patient currently on 24-hour urine collection for measurement of creatinine clearance and protein measurement. Left arm vein mapping was done. Seen by urologist in follow-up in office with Thorne catheter. Patient might need TURP after bladder wall decompensation subsides. Continue Flomax. #2 hyperkalemia: Secondary to #1 in addition to lisinopril and RUTHIE on CKD stage III. EKG reviewed, no acute changes, does show sinus tachycardia. Repeat K is 4.9. Lisinopril discontinued. Avoid nephrotoxic or potassium supplement. #3 type 2 diabetes mellitus: On diet control according to the patient. Accu- Cheks, insulin sliding scale, A1c 6.5 suggestive of good glucose control #4 benign prostatic hypertrophy: continue Flomax. #5 chronic back pain: Patient had MRI lumbar and thoracic spine that was done yesterday, reviewed. Plan for OxyIR as needed for pain, follow-up with his doctor as outpatient. #6 DVT prophylaxis: Subcu heparin. Discharge medication reconciliation done. Discharge follow-up instructions completed. Discharge process discussed with the patient and all questions were answered to patient's satisfaction. Patient to follow-up with urology and editor department. Discharged with Thorne catheter. Total time spent, exact 35 minutes on discharge meds reconciliation, examination, coordination of care with nurses and ancillary staff, review of imaging and blood test and discussion with the patient on follow-up instructions Clinical Impression(s) from Imaging Studies Renal Ultrasound 08/27/20 21:03 IMPRESSION: Severe bilateral hydronephrosis likely from bladder outlet obstruction. Correlation with CT would be useful. Chest X-Ray 08/27/20 21:30 IMPRESSION: Normal x-ray examination of the chest. Patient Problems: Active and Suspected Problems Hyperkalemia (Acute) Acute renal failure (Acute) Objective: Seen and examined. Patient had Thorne catheter. Total urine output 9000 mL after Thorne catheter. Urine is clear. Discussed with the editor department and urologist. Physical exam General: Alert, Oriented x3, Cooperative HEENT: Atraumatic, PERRLA, EOMI, Normocephalic Oral: No Gingival or Mucosal Lesions/ Ulcerations Neck: Supple, No JVD, Negative Carotid Bruits Lungs: Air entry diminished in bilateral lung bases. No crepitation/rhonchi Cardiovascular: Regular rate, Regular Rhythm, Normal S1, Normal S2, No murmurs Abdomen: Bowel Sounds Present, Soft, Non Tender, Non-Distended : No renal angle tenderness. No suprapubic tenderness. On rectal exam, prostate is enlarged, could not reach upper border. No nodule palpated. Extremities: No edema, Capillary Refill Less than 3 Seconds Skin: No rashes, No breakdown Musculoskeletal: No Tenderness to Palpation of Joints or Extremities Neurological: Cranial nerves II-XII grossly intact, Deep Tendon Reflexes 2+/4 and Symmetrical, Neuro grossly intact Psych/Mental Status: Normal Affect, Appropriate. - Physical Exam Vitals/I&O's: Vital Signs Temp Pulse Resp BP Pulse Ox 98.6 F 79 16 142/60 H 99 08/29/20 08:30 08/29/20 08:30 08/29/20 08:30 08/29/20 08:30 08/29/20 08:30 Oxygen Delivery Method Room Air Weight: 210 lb 15.718 oz Body Mass Index (BMI) 32.1 Intake and Output for Last 24 Hours 08/27/20 08/28/20 08/29/20 23:59 23:59 23:59 Intake Total 500 / 500 3456.25 / 3456.25 1627.5 / 1627.5 Output Total 5800 / 5800 1300 / 1300 Balance 500 / 500 -2343.75 / -2343.75 327.5 / 327.5 Laboratory Results 08/28/20 11:28: POC Glucose 107 08/28/20 16:49: POC Glucose 162 H 08/28/20 20:29: POC Glucose 176 H 08/29/20 05:20: Sodium 138, Potassium 4.9, Chloride 110 H, Carbon Dioxide 21.0, BUN 51 H, Creatinine 4.11 H, Estim Creat Clear Calc 19.42, Est GFR (MDRD) Af Amer 19 L, Est GFR (MDRD) Non-Af 16 L, BUN/Creatinine Ratio 12.4, Glucose 119 H, Calcium 8.3 L, Phosphorus 4.4, Iron 58 L, Ferritin 246, Albumin 3.4 08/29/20 05:20: PTH Intact 195.6 H 08/29/20 06:31: POC Glucose 156 H Current Medications Acetaminophen (Acetaminophen 325 Mg Tablet) 650 mg PO Q6H PRN PRN PRN Reason: Pain Score 1-10/Temp > 100.7 F Last Admin: 08/29/20 05:24 Dose: 650 mg Documented by: Amlodipine Besylate (Amlodipine 5 Mg Tablet) 5 mg PO DAILY [facility] Last Admin: 08/29/20 08:34 Dose: 5 mg Documented by: Ferrous Sulfate (Ferrous Sulfate 325 Mg Tablet) 325 mg PO 1200,1700 [facility] Heparin Sodium (Porcine) (Heparin Injection (Vial) 5,000 Unit/Ml Vial) 5,000 unit SC Q12 [facility] Last Admin: 08/29/20 08:34 Dose: 5,000 unit Documented by: Hydralazine HCl (Hydralazine 20 Mg/Ml Vial) 10 mg IV Q8H PRN PRN PRN Reason: for SBP>160 Sodium Chloride () 1,000 mls @ 75 mls/hr IV .[id number] [facility] Last Admin: 08/29/20 02:32 Dose: 75 mls/hr Documented by: Sodium Chloride () 250 mls @ 15 mls/hr IV .[id number] PRN PRN Reason: Saline Flush Sodium Chloride () 250 mls @ 15 mls/hr IV .[id number] PRN PRN Reason: Additional IVPB Infusion Insulin Human Lispro (Insulin Lispro 100 Unit/Ml Insuln.Pen) 0 unit SC [facility]; Protocol Last Admin: 08/29/20 06:32 Dose: 1 unit Documented by: Ondansetron HCl (Ondansetron 4 Mg/2 Ml Vial) 4 mg IV Q8H PRN PRN PRN Reason: NAUSEA/VOMITING Oxycodone HCl (Oxycodone 5 Mg Tablet) 5 mg PO Q6H PRN PRN PRN Reason: Pain Score 6-10 Last Admin: 08/29/20 05:25 Dose: 5 mg Documented by: Senna/Docusate Sodium (Senna/Docusate Sodium 1 Tablet) 2 tablet PO BID PRN PRN PRN Reason: Constipation Sodium Chloride (0.9% Saline Lock 10 Ml Syringe) 10 - 40 ml IV UD PRN PRN Reason: SALINE FLUSH Last Admin: 08/27/20 21:43 Dose: 20 ml Documented by: Tamsulosin HCl (Tamsulosin Hcl 0.4 Mg Capsule) 0.4 mg PO DAILY [facility] Last Admin: 08/29/20 08:34 Dose: 0.4 mg Documented by: Zolpidem Tartrate (Zolpidem Tartrate 5 Mg Tablet) 5 mg PO QHS PRN PRN PRN Reason: INSOMNIA Home Medications: Medications to take at Discharge Acetaminophen/Diphenhydramine [Tylenol Pm Ex-Strength Caplet] 1 - 2 tab PO QHS 08/27/20 Amlodipine [Norvasc] 5 mg PO DAILY #30 tab 08/29/20 Ferrous Sulfate 325 mg PO DAILY #30 tab 08/29/20 Tamsulosin HCl 0.4 mg PO DAILY #30 cap 08/29/20 Following Prescriptions Were Given to Patient: Ferrous Sulfate 325 mg PO DAILY #30 tab Transmission Status: Received by [facility] - [id number] Amlodipine [Norvasc] 5 mg PO DAILY #30 tab Transmission Status: Received by [place] [id number] Tamsulosin HCl 0.4 mg PO DAILY #30 cap Transmission Status: Received by [place] [id number] Primary Care Physician: Manuel Shepherd DO [Primary Care Provider] - Medical Necessity - Tobacco Use Smoking Status: Current every day smoker Tobacco Use: Pipe Meaningful Use Info Meaningful Use Diagnoses (Choose all that apply): None applicable Inpatient E&M: [id number] [facility]
--- NOTE | 2020-08-29 09:03 | PCM.DC ---
- Discharge Diagnoses Current Active Problems: Current Active and Chronic Problems Hyperkalemia (Acute) Acute renal failure (Acute) Benign prostatic hyperplasia (Chronic) Type 2 diabetes mellitus (Chronic) You will use the following diet at home:: Cardiac Your food should be the consistency of: Regular Discharge Activity: Return to Normal Activity Weight Bearing Status: Weight bearing as tolerated Call your doctor if you observe: Fever of 101 or Higher, Coldness, Increased Pain, Numbness or Tingling, Inability to urinate, Inability to have a bowel movement, Shortness of breath, Dizziness, Fainting spells, Swelling in the ankles, Chest pain, Prolonged hiccoughing, Increased palpitations (irregular heartbeat), Uncontrolled pain Additional Instructions: Discharge home with Thorne catheter Allergies/Adverse Reactions: Allergies aspirin Allergy (Verified 08/27/20 21:16) rapid heart rate/arrhythmia Medications to take at Discharge Acetaminophen/Diphenhydramine [Tylenol Pm Ex-Strength Caplet] 1 - 2 tab PO QHS 08/27/20 Amlodipine [Norvasc] 5 mg PO DAILY #30 tab 08/29/20 Ferrous Sulfate 325 mg PO DAILY #30 tab 08/29/20 Tamsulosin HCl 0.4 mg PO DAILY #30 cap 08/29/20 The following prescriptions were given: Ferrous Sulfate 325 mg PO DAILY #30 tab Transmission Status: Pending to [place] [id number] Amlodipine [Norvasc] 5 mg PO DAILY #30 tab Transmission Status: Pending to [facility] [id number] Tamsulosin HCl 0.4 mg PO DAILY #30 cap Transmission Status: Pending to [facility] [address] Primary Care Physician: Manuel Shepherd DO [Primary Care Provider] - Please follow up with your Primary Care Physician in: in 2 weeks Test Results: Test results from this visit will be discussed in further detail at your follow-up appointment, if applicable. Please Follow Up With: Ale Lehman DO When: in 4 weeks Please Follow Up With: Jeffrey Baxter MD When: in 2-3 weeks
--- NOTE | 2020-08-29 11:25 | CASEMGMT ---
Per previous note, pt would like [facility] SN set up d/t home with new butler and pt stated no preference on [facility] agency. Call to [facility] and per Jessica, they can take pt at this time. Referral faxed at this time and D/C summ/instructions to be faxed once obtained. Jessica is aware that pt to d/c today. Pt updated on [facility] at this time and voices no further questions/concerns/needs at this time. SStwesley ELLSWORTH CM
[2020-08-29] MEDS: Ferrous Sulfate 325 MG Tablet PO ×2 (11:26→17:32)
[2020-08-29 11:36] LABS: Bedside Glucose 183 mg/dL (70-110)
--- NOTE | 2020-08-29 15:14 | PHA.DC.MC ---
Pharmacy Service has performed discharge medication reconciliation and counseling for this patient. 1. AMLODIPINE 5MG PO DAILY 2. FERROUS SULFATE 325MG PO DAILY 3. TAMSULOSIN 0.4MG PO DAILY The patient's discharge medication list was reviewed for discrepancies and discrepancies were resolved. Home Medications Acetaminophen/Diphenhydramine [Tylenol Pm Ex-Strength Caplet] 1 - 2 tab PO QHS 08/27/20 Amlodipine [Norvasc] 5 mg PO DAILY #30 tab 08/29/20 Ferrous Sulfate 325 mg PO DAILY #30 tab 08/29/20 Tamsulosin HCl 0.4 mg PO DAILY #30 cap 08/29/20 The patient was counseled on the following discharge medications and changes in medications for homegoing were reviewed. The Reason for Use, instructions for use, and potential side effects were reviewed for all new medications. The patient's questions regarding all of their medications were answered. The patient was able to verbally demonstrate an understanding of their discharge medications. Patient counseled by pharmacy buyerGale.
[2020-08-29 22:10] LABS: Bedside Glucose 117 mg/dL (70-110)
[2020-08-29 22:12] LABS: Urine Protein (24 Hour) 156.3 mg/dL (<11.9)
[2020-08-29 22:13] LABS: Creat.Clear Total Volume 6600 mL; Creatinine Clearance 30 ml/min (100-200); Creatinine Serum Creat 4.1 mg/dL (0.8-1.3); Creatinine Urine 26.8 mg/dL (NO RANGE EST.); EST Glomerular Filtration Rate 16 mL/min (>60); Est Glom Filt Rate - Afr Amer 19 mL/min (>60)
[2020-08-29 22:16] LABS: 24HR. UA Prot. Total Volume 6600 mL
== END 2020-08-29 18:31 | disposition home or self-care (01) | DRG 469 ==
LOC: ED 20:26 → PCU 21:04
PROVIDERS: Hospitalist; Internal Medicine Nephrology; Admitting Provider Family Medicine; Emergency Provider Emergency Medicine; PCP Student in an Organized Health Care Education/Training Program; Visit Provider Internal Medicine
DX: N17.9 Acute kidney failure, unspecified (principal); M48.50XA Collapsed vertebra, not elsewhere classified, site unspecified, initial encounter for fracture; N13.8 Other obstructive and reflux uropathy; E11.22 Type 2 diabetes mellitus with diabetic chronic kidney disease; E87.5 Hyperkalemia; D50.9 Iron deficiency anemia, unspecified; N18.4 Chronic kidney disease, stage 4 (severe); F17.290 Nicotine dependence, other tobacco product, uncomplicated; N40.1 Benign prostatic hyperplasia with lower urinary tract symptoms; I12.9 Hypertensive chronic kidney disease with stage 1 through stage 4 chronic kidney disease, or unspecified chronic kidney disease; J45.909 Unspecified asthma, uncomplicated; N13.30 Unspecified hydronephrosis; Z23 Encounter for immunization; G89.29 Other chronic pain; R33.8 Other retention of urine
CPT/HCPCS: 36415; 71045; 72146; 72148; 76770; 80048; 80053; 80069; 81001; 81050; 82340; 82436; 82570; 82575; 82728; 82962; 83036; 83540; 83970; 84156; 84300; 84484; 85025; 87086; 93005; 93970; 99251; 99285; 99406; J7030; 90686; A4216; G0463

== ENCOUNTER 2020-09-06 11:14 | Emergency (ER) | payer MEDICAID, SELFPAY ==
[2020-09-06 11:15] VITALS: BP 81/39; PULSE 84; RESP 18; TEMP 36; O2SAT 96; BMI 32.3
--- NOTE | 2020-09-06 12:01 | ED.DCSUM_ITS ---
History of Present Illness Chief Complaint: Back Informant: Patient Onset: Days Context: Gradual Onset Timing: Continuous Current Severity: Moderate Maximum Severity: Severe Narrative: The patient is a 55-year-old male who presents to the emergency department back pain. Patient was recently hospitalized for acute kidney injury secondary to BPH. He had a Thorne catheter placed. He still been making urine. He underwent MRIs when he was in the hospital. He was found to have rather significant degenerative changes in his spine. The patient was receiving oral analgesics while in the hospital. He was to follow-up with Dr. Moffett. He states that no one will give any pain medication. He states this is his normal chronic pain. He denies any fevers or chills. He denies any other systemic symptoms. Prior similar symptoms: Yes Recent Illness/Hospitalization: Yes Past Medical History - Allergies and Home Meds Allergies/Adverse Reactions: Allergies aspirin Allergy (Verified 09/06/20 11:20) rapid heart rate/arrhythmia Primary Care Physician: Manuel Shepherd DO [Primary Care Provider] - Prior records reviewed: Yes Past Medical History: - - Diabetes, hypertension, chronic kidney disease Surgical History: herniorrhaphy Smoking Status: Current some day smoker - Family History Maternal Family History: Reports: Renal Disease Paternal Family History: Reports: - - prostates issues Review of Systems General: Denies: Chills, Fever, Sweats Eyes: Denies: Visual changes - bilaterally, Diplopia ENT: Denies: Rhinorrhea, Sore throat Cardiovascular: Denies: Chest pain, Palpitations Respiratory: Denies: Dyspnea, Cough, Dyspnea on exertion Gastrointestinal: Denies: Abdominal pain, Nausea, Vomiting, Diarrhea, Melena, Hematochezia Genitourinary: Denies: Dysuria, Hematuria, Frequency Musculoskeletal: Reports: Back pain. Denies: Extremity Pain Skin: Denies: Rash, Wounds Neurological: Denies: Headache, Weakness, Numbness Physical Exam Vital Signs/Narrative: Vital Signs Temp Pulse Resp BP Pulse Ox 09/06/20 11:15 96.8 F L 84 18 81/39 L 96 Inital Vital Signs reviewed: Yes General: Well nourished, Well developed, No Acute Distress Head: Normocephalic, Atraumatic Eyes: Perrl, EOMI ENT: Moist mucous membranes, No rhinorrhea Neck: Supple, Nontender Cardiovascular: Regular rate, Regular rhythm, No murmurs Respiratory: No distress, CTA bilaterally, Chest nontender Abdomen: Soft, Nontender, Nondistended, Normal bowel sounds Back: Nontender, Normal Inspection Extremities: Nontender, No edema Skin: Normal color, No rash Neurological: Alert, Oriented x3, Cranial nerves II-XII grossly intact, Normal Strength, Normal Sensation Psychological: Normal affect, Normal Mood Diagnostic/Tx/Re-eval Abnormal Lab Results 09/06/20 12:52 Urine Color Yellow Urine Clarity Cloudy Urine pH 5.0 Ur Specific [place] 1.015 Urine Protein 100 H Urine Glucose (UA) 250 H Urine Ketones Negative Urine Occult Blood 250 H Urine Nitrite Positive H Urine Bilirubin Negative Urine Urobilinogen Normal Ur Leukocyte Esterase 500 H Urine RBC 0-5 SEEN Urine WBC >100 SEEN Ur Squamous Epith Cells 0 SEEN Urine Bacteria 2+ Urine Mucus 0 SEEN - Medical Decision Making The patient presents with exacerbation of his back pain. His reflexes are normal. He has a strong steady gait. There is no red flag symptoms. He had a MRI 10 days ago which showed no evidence of acute cord compression. Is not had fever or chills. I did obtain a urine given his recent hospitalization and catheter. This does show some evidence of infection and he does describe some dysuria with the catheter. Culture was added. He will be started on Keflex. At this point, I do feel that he is safe for outpatient follow-up. This is his normal chronic pain just exacerbated. He is comfortable with this plan of care. Impression 1. Cystitis 2. Exacerbation of chronic back pain ED Disposition - Plan for ED Patient: Instructions: ED Spasm Back No Trauma Prescriptions: Cephalexin [Keflex] 500 mg PO Q6 #40 cap Prescription Printed Oxycodone HCl/Acetaminophen [Percocet 5/325] 1 tab PO Q6H PRN PRN 3 Days #12 tab PRN Reason: Pain Prescription Printed Referrals: Manuel Shepherd DO [Primary Care Provider] -
[2020-09-06] MEDS: fentaNYL 100 MCG/2 ML Ampul 50 MCG IM (12:23)
[2020-09-06 13:04] LABS: Mucous, Urine 0 SEEN /hpf (<or=2+); Squamous Epithelial Cells - UA 0 SEEN /hpf (0-5)
[2020-09-06 13:16] LABS: Color, Urine Yellow (Yellow); Glucose, Dipstick 250 mg/dl (Normal); Ketone-Dipstick Negative (Negative); Leukocyte Esterase-Dipstick 500 /ul (Negative); Nitrite-Dipstick Positive (Negative); Occult Blood-Urine 250 /ul (Negative); Protein-Dipstick 100 mg/dl (Negative); Specific Gravity, Urine 1.015 (1.002-1.030); Urine Bilirubin Dipstick Negative (Negative); Urine Clarity Cloudy (Clear); Urine Urobilinogen Normal (Normal)
[2020-09-06 13:45] LABS: Bacteria 2+ /hpf (None Seen); Red Blood Cells-Urine 0-5 SEEN /hpf (0-5); White Blood Cells >100 SEEN /hpf (0-5)
[2020-09-06 13:52] VITALS: BP 103/49; PULSE 65; RESP 16; O2SAT 99
== END 2020-09-06 15:08 | disposition home or self-care (01) ==
LOC: ED 13:06
PROVIDERS: Emergency Provider Emergency Medicine; PCP Student in an Organized Health Care Education/Training Program
DX: N30.90 Cystitis, unspecified without hematuria (principal); G89.29 Other chronic pain; N40.0 Benign prostatic hyperplasia without lower urinary tract symptoms
CPT/HCPCS: 81001; 87077; 87086; 87088; 87186; 96372; 99283

== ENCOUNTER 2020-09-23 11:53 | Emergency (ER) | payer MEDICAID, SELFPAY ==
[2020-09-23 11:55] VITALS: BP 151/72; PULSE 81; RESP 17; TEMP 35.8; O2SAT 99; BMI 30.4
--- NOTE | 2020-09-23 12:18 | ED.VIS.GEN ---
History of Present Illness Chief Complaint: Thorne C/O Informant: Patient Onset: Weeks - 1 Context: Gradual Onset Timing: Continuous Quality: Thorne bag leaking Current Severity: Mild Maximum Severity: Mild Associated Symptoms: Denies Narrative: Patient has had a Thorne catheter for less than 1 month for urinary retention due to enlarged prostate. He states he has lost the thigh clip that holds it in place, and the bag is leaking and he would like a new catheter. He denies any leaking around the catheter itself at the site of insertion at the penis. - Past Medical History (1) Iron deficiency anemia Status: Chronic (2) Obstructive uropathy Status: Chronic (3) Benign prostatic hyperplasia Status: Chronic (4) CKD (chronic kidney disease) stage 4, GFR 15-29 ml/min Status: Chronic (5) Type 2 diabetes mellitus Status: Chronic Past Medical History - Allergies and Home Meds Allergies/Adverse Reactions: Allergies aspirin Allergy (Verified 09/23/20 11:54) rapid heart rate/arrhythmia Primary Care Physician: Manuel Shepherd DO [Primary Care Provider] - Surgical History: herniorrhaphy Smoking Status: Current some day smoker - Family History Maternal Family History: Reports: Renal Disease Paternal Family History: Reports: - - prostates issues Review of Systems General: Denies: Chills, Fever, Sweats Gastrointestinal: Denies: Abdominal pain, Nausea, Vomiting, Diarrhea, Melena, Hematochezia Genitourinary: Denies: Dysuria, Hematuria Skin: Denies: Rash, Wounds Neurological: Denies: Headache, Weakness, Numbness Physical Exam Vital Signs/Narrative: Vital Signs Temp Pulse Resp BP Pulse Ox 09/23/20 11:55 96.4 F L 81 17 151/72 H 99 General: Well nourished, Well developed, No Acute Distress Head: Normocephalic, Atraumatic Abdomen: Soft, Nontender : - - Thorne catheter in place, there is transparent yellow urine with some sediment flowing through the catheter into the bag. There is no leaking around the urethra, which is normal-appearing. Skin: Normal color, No rash Neurological: Alert, Oriented x3, Cranial nerves II-XII grossly intact, Normal Strength, Normal Sensation Psychological: Normal affect, Normal Mood Diagnostic/Tx/Re-eval - Medical Decision Making As discussed with the patient, we will give him some new hardware but I will leave the catheter in given the possibility of not being able to place a new one, I do not think the benefits of placing a new one outweigh the risks, but we will give him replacement tubing and bag and clipped. He is comfortable with that plan and is scheduling follow-up with urology. ED Disposition - Plan for ED Patient: Disposition: Home or Assisted Living Diagnosis: Thorne catheter problem Instructions: Caring for Your Indwelling Urinary Catheter Referrals: Manuel Shepherd DO [Primary Care Provider] - urologist, your [Other] (call for appt)
--- NOTE | 2020-09-23 13:17 | ED.RN ---
NEW LEVIN BAG CHANGED.
== END 2020-09-23 13:18 | disposition home or self-care (01) ==
LOC: ED 12:41
PROVIDERS: Emergency Provider Emergency Medicine; PCP Student in an Organized Health Care Education/Training Program
DX: T83.9XXA Unspecified complication of genitourinary prosthetic device, implant and graft, initial encounter (principal); F17.200 Nicotine dependence, unspecified, uncomplicated
CPT/HCPCS: 99282

== ENCOUNTER → 2020-10-21 11:10 | Outpatient (CLI) | payer MEDICAID, SELFPAY ==
[2020-09-23 11:55] VITALS: BMI 30.4
[2020-10-21 11:36] LABS: Hematocrit 40.3 % (40-54); Hemoglobin 12.6 g/dL (13.0-16.5); Mean Corp Hgb Conc 31.3 g/dL (32-36); Mean Corpuscular Hgb 28.9 pg (27.0-32.0); Mean Corpuscular Volume 92.4 fL (80-94); Mean Platelet Vol. 10.3 fl (6.2-12.0); Platelet Count 373 K/mm3 (150-450); RBC Distribution Width CV 14.1 % (11.6-14.6); RBC Distribution Width SD 48.1 fl (35.1-43.9); Red Blood Count 4.36 M/mm3 (4.6-6.2); White Blood Count 9.5 K/mm3 (4.4-11.0)
[2020-10-21 11:59] LABS: ALB/GLOB Ratio 0.7 RATIO (0.9-2.4); AST(SGOT) 14 U/L (15-37); Alanine Aminotransfer ALT/SGPT 18 U/L (16-61); Albumin, Serum 3.4 g/dL (3.2-5.0); Alkaline Phosphatase 85 U/L (45-117); Anion Gap 7 (5-15); BUN 29 mg/dL (7-18); BUN/Creat Ratio 15.7 RATIO (10-20); Calcium,Total 8.9 mg/dL (8.5-10.1); Chloride 101 mmol/L (98-107); Creatinine, Serum 1.85 mg/dL (0.70-1.30); EST Glomerular Filtration Rate 40 mL/min (>60); Est Glom Filt Rate - Afr Amer 49 mL/min (>60); Globulin 4.7 g/dL (2.2-4.2); Glucose 365 mg/dL (74-106); Potassium 4.3 mmol/L (3.5-5.1); Protein, Total 8.1 g/dL (6.4-8.2); Sodium Level 133 mmol/L (136-145)
[2020-10-21 12:02] LABS: Vitamin B12 381 pg/mL (211-911)
[2020-10-21 12:05] LABS: Hemoglobin A1c 7.3 % (3.8-5.6)
[2020-10-23 15:14] LABS: Arsenic 7245 6 ug/L (2-23); Lead, Blood 1 ug/dL (0-4); Mercury, Blood 85324 < 1.0 ug/L (0.0-14.9)
== END ==
PROVIDERS: PCP Student in an Organized Health Care Education/Training Program; Referring Provider Student in an Organized Health Care Education/Training Program; Visit Provider Student in an Organized Health Care Education/Training Program
DX: G62.9 Polyneuropathy, unspecified (principal); E11.9 Type 2 diabetes mellitus without complications
CPT/HCPCS: 36415; 80053; 82175; 82607; 83036; 83655; 83825; 85027

== ENCOUNTER → 2020-11-12 10:01 | Outpatient (CLI) | payer MEDICAID, SELFPAY ==
--- NOTE | 2020-11-12 10:06 | US_ITS ---
STUDY: RENAL ULTRASOUND - COMPLETE REASON FOR EXAM: Male, 55 years old. URINARY RETENTION, THORNE CATHETER TECHNIQUE: Ultrasound evaluation of the kidneys was performed with real-time and static pompa-scale imaging. COMPARISON: None. FINDINGS: RIGHT KIDNEY: Normal location of the right kidney, which is normal in size. The right kidney measures 10.0 cm. There is a normal cortex of the right kidney. The renal cortex measures 1.2 cm. There is no right renal mass or cyst. There are no right renal calculi. There is no right hydronephrosis. DISTAL RIGHT URETER: There is non-visualization of the distal right ureter. There is no demonstrated right ureterovesical junction calculus. There is a visualized right ureteral jet. LEFT KIDNEY: Normal location of the left kidney, which is normal in size. The left kidney measures 10.1 cm. There is a normal cortex of the left kidney. The renal cortex measures 1.1 cm. There is no left renal mass or cyst. There are no left renal calculi. There is no left hydronephrosis. DISTAL LEFT URETER: There is non-visualization of the distal left ureter. There is no demonstrated left ureterovesical junction calculus. There is a visualized left ureteral jet. BLADDER: Not visualized due to Thorne catheter.. US/Kidney and Bladder IMPRESSION: Normal ultrasound of the kidneys. Electronically Signed: Billy Rodriguez MD at 11:22 EST Tel , Service support ,
== END ==
PROVIDERS: PCP Student in an Organized Health Care Education/Training Program
DX: R33.9 Retention of urine, unspecified (principal); Z12.5 Encounter for screening for malignant neoplasm of prostate
CPT/HCPCS: 76770

== ENCOUNTER → 2020-11-13 11:00 | Outpatient (CLI) | payer MEDICAID, SELFPAY ==
[2020-11-13 12:48] LABS: Hematocrit 43.3 % (40-54); Mean Corp Hgb Conc 32.3 g/dL (32-36); Mean Corpuscular Hgb 29.2 pg (27.0-32.0); Mean Corpuscular Volume 90.2 fL (80-94); Mean Platelet Vol. 10.7 fl (6.2-12.0); Platelet Count 331 K/mm3 (150-450); RBC Distribution Width CV 13.1 % (11.6-14.6); RBC Distribution Width SD 43.2 fl (35.1-43.9); White Blood Count 8.3 K/mm3 (4.4-11.0)
[2020-11-13 12:50] LABS: PTHIN 129.2 pg/mL (18.4-80.1)
[2020-11-13 13:08] LABS: Ferritin 151 ng/mL (26-388); Iron 47 ug/dL (65-175); Iron Binding Capacity,Total 304 ug/dL (250-450)
== END ==
PROVIDERS: PCP Student in an Organized Health Care Education/Training Program; Referring Provider Internal Medicine Nephrology; Visit Provider Internal Medicine Nephrology
DX: D50.9 Iron deficiency anemia, unspecified (principal); E21.1 Secondary hyperparathyroidism, not elsewhere classified
CPT/HCPCS: 36415; 82728; 83540; 83550; 83970; 85027

== ENCOUNTER → 2020-11-29 10:09 | Outpatient (CLI) | payer MEDICAID, SELFPAY ==
[2020-11-29 12:06] LABS: Creatinine, Serum 1.93 mg/dL (0.70-1.30); EST Glomerular Filtration Rate 38 mL/min (>60); Est Glom Filt Rate - Afr Amer 46 mL/min (>60); PSA,Total - Annual Screen 3.81 ng/mL (0.00-4.00)
== END ==
PROVIDERS: PCP Student in an Organized Health Care Education/Training Program
DX: R39.9 Unspecified symptoms and signs involving the genitourinary system (principal); Z12.5 Encounter for screening for malignant neoplasm of prostate
CPT/HCPCS: 36415; 82565; 84153; G0103